=== PATIENT | female | born 1930 | race Hispanic/Latino ===

== ENCOUNTER 2017-04-26 06:59 | Inpatient (IN) | payer MEDICARE, OTHER ==
[~2017-04-26] VITALS: Ht 162.6 cm; Wt 80.8 kg
[~2017-04-26 06:59] MED LIST: AMLODIPINE BESYL5 MG PO; ATENOLOL50 MG PO; LEVOTHYROXINE88 MCG PO; NYSTATIN100000 UNI PO; PREVNAR 13 SYR0.5 ML
[2017-04-26] MEDS ORDERED: ASPIRIN 81 MG CHEW TAB PO ONE (07:30)
[2017-04-26 07:47] LABS: BASOPHILS % 0.4 % (0.0-1.0); EOSINOPHILS % 0.3 % (0.0-6.0); HEMATOCRIT 27.8 % (34.2-44.1); HEMOGLOBIN 8.2 g/dL (12.0-16.0); LYMPHOCYTES # (AUTO) 2.2 (1.0-3.2); LYMPHOCYTES % 28.9 % (18.0-39.1); MEAN CORPUSCULAR HEMOGLOBIN 21.9 pg (28-32); MEAN CORPUSCULAR HGB CONC 29.5 g/dL (31-35); MEAN CORPUSCULAR VOLUME 74.1 fL (81-99); MONOCYTES # (AUTO) 0.9 (0.2-0.8); MONOCYTES % 12.1 % (4.4-11.3); NEUTROPHILS # (AUTO) 4.3 (2.1-6.9); NEUTROPHILS % 57.9 % (38.7-80.0); PLATELET COUNT 244 x10e3/uL (140-360); RED BLOOD COUNT 3.75 x10e6/uL (3.6-5.1); RED CELL DISTRIBUTION WIDTH 18.5 % (11.7-14.4)
[2017-04-26] MEDS ORDERED: SODIUM CHLORIDE 0.9% 1000ML 1,000 ML IV STA (07:55)
[2017-04-26 07:56] LABS: PROTHROMBIN TIME 13.7 seconds (11.9-14.5)
[2017-04-26 07:57] LABS: PARTIAL THROMBOPLASTIN TIME 31.7 seconds (23.8-35.5)
[2017-04-26 08:12] LABS: ALANINE AMINOTRANSFERASE 23 IU/L (0-55); ALBUMIN/GLOBULIN RATIO 0.9 (0.8-2.0); ALKALINE PHOSPHATASE 47 IU/L (40-150); ANION GAP 13.3 mmol/L (8-16); BLOOD UREA NITROGEN 26 mg/dL (7-26); BUN/CREATININE RATIO 23 (6-25); CALCIUM 7.7 mg/dL (8.4-10.2); CARBON DIOXIDE 19 mmol/L (22-29); CHLORIDE 109 mmol/L (98-107); CREATINE KINASE 1120 IU/L (29-168); CREATININE, SERUM 1.12 mg/dL (0.57-1.11); EST GLOMERULAR FILTRATION RATE 46 ML/MIN (60-); GLUCOSE 132 mg/dL (74-118); POTASSIUM 3.3 mmol/L (3.5-5.1); SODIUM 138 mmol/L (136-145)
--- NOTE | 2017-04-26 08:16 | Diagnostic Imaging Report ---
Exam: Head CT without contrast History: Dizziness, weakness Comparison studies: Head CT 07/28/2015. Technique: Axial images were obtained from the skull base to the vertex. Coronal and sagittal images reconstructed from the axial data. Intravenous contrast: None Findings: Scalp: No abnormalities. Bones: No fractures, blastic or lytic lesions. Brain sulci: Mildly prominent. Ventricles: Mild compensatory dilatation. No hydrocephalus. Extra-axial spaces: A 7 mm ossification at the right frontal convexity which may represent benign exostosis or possibly small incidental meningioma without mass effect is unchanged. No other mass or fluid collection. Parenchyma: No mass, acute hemorrhage or acute cortical vascular insults. A few scattered hypodensities in the supratentorial white matter are nonspecific, but most compatible with chronic small vessel ischemic changes. Sellar/suprasellar region: No abnormalities. Craniocervical junction: Patent foramen magnum. No Chiari one malformation. Incidental findings: Atherosclerotic calcifications in the carotid siphons. IMPRESSION: No acute intracranial abnormalities. No changes from the previous head CT 07/28/2015. Chronic findings: 1. Mild generalized volume loss. 2. Mild chronic microvascular ischemic changes. Signed by: Dr. Gaudencio Addison M.D. on 04/26/2017 8:12 AM
[2017-04-26 08:33] LABS: MAGNESIUM 1.9 MG/DL (1.3-2.1)
[2017-04-26 08:46] LABS: BILIRUBIN,URINE NEGATIVE (NEGATIVE); KETONES,URINE NEGATIVE (NEGATIVE); LEUKOCYTE ESTERASE ,URINE 2+ (NEGATIVE); PROTEIN,URINE DIPSTICK NEGATIVE (NEGATIVE); URINE UROBILINOGEN 0.2 mg/dL (0.2 - 1)
[2017-04-26 08:47] LABS: CLARITY,URINE CLOUDY (CLEAR); COLOR,URINE YELLOW (YELLOW); NITRITE,URINE POSITIVE (NEGATIVE)
[2017-04-26 08:59] LABS: THYROID STIMULATING HORMONE 4.924 uIU/mL (0.350-4.940)
[2017-04-26 09:00] LABS: BACTERIA,URINE MANY /HPF; EPITHELIAL CELLS,URINE FEW /LPF; WBC,URINE (MAN) 21-50 /HPF (0-5)
--- NOTE | 2017-04-26 09:13 | Diagnostic Imaging Report ---
EXAMINATION: Chest, CHEST 2 VIEWS INDICATION: Chest pain COMPARISON: Chest 2 views 07/28/2015 FINDINGS: LINES: None. Heart: Normal cardiac silhouette. Vascular: The pulmonary vasculature is within normal limits. Atherosclerotic calcifications of the aortic arch. Mediastinum: No mediastinal, hilar, or axillary mass or lymphadenopathy. Lungs: No parenchymal mass. No focal consolidation. Bibasilar atelectasis. Pleura: No pleural effusion. No pneumothorax. Bones: No acute osseous abnormality. Degenerative changes of the thoracic spine. Soft tissues: Normal. Impression: No acute radiographic abnormality. Signed by: Dr. Manuel Bernal M.D. on 04/26/2017 9:10 AM
--- NOTE | 2017-04-26 10:04 | Diagnostic Imaging Report ---
EXAM: CT Chest WITH contrast INDICATION: Chest pain COMPARISON: None available TECHNIQUE: Chest was scanned utilizing a multidetector helical scanner from the lung apex through the level of the diaphragm after administration of IV contrast. Coronal and sagittal reconstructions were submitted for interpretation. Protocol: Pulmonary embolus protocol IV CONTRAST: 100 mL of Isovue 370 COMPLICATIONS: None RADIATION DOSE: Total exam DLP: 498.9 mGy*cm. CTDIvol has been reviewed. It is below the limits set by the Radiation Protocol Committee (RPC). FINDINGS: LINES/ TUBES: None. Heart: No cardiomegaly. No pericardial effusion. Vessels: No intraluminal filling defect within the pulmonary arteries to the segmental level. Atherosclerotic calcifications of the thoracic aorta and coronary arteries. Mediastinum: No mediastinal or hilar mass or lymphadenopathy. Normal thyroid. Lungs: No parenchymal mass. Airspace opacities are present in the right lower lobe, series 3 image 75, and the left upper lobe, series 3 image 58. Normal parenchyma. Pleura: No pleural effusion. No pneumothorax. Soft tissues: Normal. No axillary mass or lymphadenopathy. Bones: No acute osseous abnormality. Degenerative changes of the thoracic spine. Adrenal glands: No adrenal nodules. Abdomen: The partially visualized portions of the upper abdomen are unremarkable. Cholelithiasis. IMPRESSION: 1. No evidence of pulmonary arterial embolism or thrombosis to the segmental level. 2. Airspace opacities in the right lower lobe and left upper lobe may represent a developing pneumonia. Signed by: Dr. Manuel Bernal M.D. on 04/26/2017 10:00 AM
[2017-04-26] MEDS ORDERED: SODIUM CHLORIDE 0.9% 500ML 500 ML ONE (10:59)
[2017-04-26] MEDS ORDERED: POTASSIUM CHLORIDE 20 MEQ TAB CR PO STA (11:13)
[2017-04-26] MEDS ORDERED: DILTIAZEM HCL VIAL 5 ML ONE (11:37)
[2017-04-26] MEDS ORDERED: DIGOXIN INJ 0.25 MG/ML 2 ML AMP ONE (11:55)
[2017-04-26] MEDS: SODIUM CHLORIDE 0.9% 1000ML 1,000 ML IV SCH ×2 (11:56→22:04)
[2017-04-26] MEDS ORDERED: AMIODARONE 900MG 500 ML IV ONE (11:58)
[2017-04-26] MEDS ORDERED: DILTIAZEM HCL 5 MG/ML 5 ML VIAL IV ONE (12:15)
[2017-04-26] MEDS ORDERED: AMIODARONE HCL 150 MG/100 ML BAG IV ONE (12:30)
[2017-04-26] MEDS ORDERED: AMIODARONE HCL 100 ML IV ONE (13:00)
[2017-04-26] MEDS ORDERED: AMIODARONE 900MG 500 ML IV SCH (13:00)
[2017-04-26] MEDS ORDERED: DIGOXIN INJ 0.25 MG/ML 2 ML AMP IV ONE (13:00)
[2017-04-26] MEDS: CEFTRIAXONE SOD 1 GM VIAL IV SCH (13:06)
[2017-04-26] MEDS: ALBUTEROL/IPRATROPIUM 3 ML NEB NEB SCH ×2 (15:00→19:24)
[2017-04-26] MEDS ORDERED: OSELTAMIVIR PHOSPHATE 75 MG CAP PO SCH (17:00)
[2017-04-26] MEDS ORDERED: SODIUM CHLORIDE 0.9% 50ML 50 ML ONE (18:25)
[2017-04-26] MEDS ORDERED: IOPAMIDOL 370 MG/ML 200 ML INFUS..BTL INJ ONE (18:26)
[2017-04-26] MEDS ORDERED: IOPAMIDOL 300MG/ML 100 ML INFUS..BTL IV ONE (18:26)
[2017-04-26] MEDS: TAMIFLU 30 MG PO SCH (19:10)
[2017-04-27] MEDS: SODIUM CHLORIDE 0.9% 1000ML 1,000 ML IV SCH (02:17)
[2017-04-27] MEDS: ALBUTEROL/IPRATROPIUM 3 ML NEB NEB SCH ×3 (07:00→23:35)
[2017-04-27 07:36] LABS: BASOPHILS % 0.3 % (0.0-1.0); EOSINOPHILS % 0.5 % (0.0-6.0); HEMATOCRIT 24.8 % (34.2-44.1); LYMPHOCYTES # (AUTO) 1.7 (1.0-3.2); MEAN CORPUSCULAR HEMOGLOBIN 22.2 pg (28-32); MEAN CORPUSCULAR HGB CONC 29.8 g/dL (31-35); MEAN CORPUSCULAR VOLUME 74.3 fL (81-99); MONOCYTES # (AUTO) 0.6 (0.2-0.8); MONOCYTES % 9.5 % (4.4-11.3); NEUTROPHILS # (AUTO) 4.1 (2.1-6.9); NEUTROPHILS % 63.2 % (38.7-80.0); PLATELET COUNT 197 x10e3/uL (140-360); RED BLOOD COUNT 3.34 x10e6/uL (3.6-5.1); RED CELL DISTRIBUTION WIDTH 18.6 % (11.7-14.4)
[2017-04-27 07:45] LABS: HEMOGLOBIN 7.4 g/dL (12.0-16.0)
[2017-04-27 08:03] LABS: % IRON SATURATION 12 % (15-50); ANION GAP 9.4 mmol/L (8-16); BLOOD UREA NITROGEN 15 mg/dL (7-26); BUN/CREATININE RATIO 19 (6-25); CALCIUM 7.4 mg/dL (8.4-10.2); CARBON DIOXIDE 19 mmol/L (22-29); CHLORIDE 114 mmol/L (98-107); CREATININE, SERUM 0.77 mg/dL (0.57-1.11); EST GLOMERULAR FILTRATION RATE > 60 ML/MIN (60-); GLUCOSE 110 mg/dL (74-118); IRON 42 ug/dL (50-170); POTASSIUM 4.4 mmol/L (3.5-5.1); SODIUM 138 mmol/L (136-145); TOTAL IRON BINDING CAPACITY 353 ug/dL (261-478); TRANSFERRIN 252 mg/dL (180-382)
[2017-04-27] MEDS: TAMIFLU 30 MG PO SCH ×2 (08:53→17:00)
[2017-04-27] MEDS: IRON SUCROSE 100 MG in SODIUM CHLORIDE 0.9% 100 ML 100 ML IV SCH (10:35)
[2017-04-27 11:15] VITALS: BP 195/79
[2017-04-27] MEDS ORDERED: ASPIRIN 81 MG ENTERIC COATED PO ONE (12:30)
[2017-04-27] MEDS ORDERED: METOPROLOL TARTRATE 25 MG TAB PO ONE (12:30)
[2017-04-27] MEDS: CEFTRIAXONE SOD 1 GM VIAL IV SCH (12:35)
[2017-04-27 13:00] VITALS: BP 195/79
--- NOTE | 2017-04-27 14:01 | Consultation ---
DATE OF CONSULTATION: April 27, 2017 CARDIOLOGY CONSULTATION REASON FOR CONSULTATION: Atrial fibrillation. HISTORY OF PRESENT ILLNESS: Ms. Johnson is an 86-year-old female who was admitted with influenza as well as urinary tract infection. She was found to be in rapid atrial fibrillation. She denies any past medical problems. She was given intravenous amiodarone with conversion to sinus rhythm. PAST MEDICAL HISTORY: As listed above. SOCIAL HISTORY: Patient does not smoke or drink. No family is present. ALLERGIES: NO KNOWN DRUG ALLERGIES. HOME MEDICATIONS: Include levothyroxine 88 mcg a day. REVIEW OF SYSTEMS: Negative except as dictated in the history of present illness. PHYSICAL EXAMINATION VITAL SIGNS: Afebrile, heart rate 69, blood pressure 162/62, and O2 sat 100%. CARDIOVASCULAR: Regular rhythm. S4 gallop. Systolic murmur. LUNGS: Crackles in the right lower lobe. ABDOMEN: Soft. Bowel sounds heard adequately. LABORATORY AND IMAGING DATA: Telemetry shows sinus rhythm. Chest CT shows consolidation in the right lower lobe. Labs were reviewed. Creatinine is 0.77, INR is 1. Hemoglobin is 7.4 with iron deficiency anemia indices. ASSESSMENT: Paroxysmal atrial fibrillation in the setting of influenza pneumonia. RECOMMENDATIONS: Beta-ramy amiodarone for rate and rhythm control. At this point, the patient is anemic with a hemoglobin of 7.4. I will give her an aspirin only for anticoagulation, restart her levothyroxine, check thyroid function (this was normal). Echocardiogram has been ordered, I will review the same. Maintain on telemetry for now. Job#: [id number] LATOYA
[2017-04-27 16:00] VITALS: BP 157/67
[2017-04-27] MEDS ORDERED: ACETAMINOPHEN 325 MG TAB PO PRN (16:45)
[2017-04-27] MEDS: ACETAMINOPHEN 325 MG TAB PO PRN (17:20)
[2017-04-27] MEDS: METOPROLOL TARTRATE 25 MG TAB PO SCH (17:20)
[2017-04-27] MEDS: AMIODARONE HCL 200 MG TAB PO SCH (17:20)
[2017-04-27 20:00] VITALS: BP 122/60
[2017-04-28] VITALS (7 sets, daily range): BP systolic 138–148; BP diastolic 63–74
[2017-04-28 07:10] LABS: BASOPHILS % 0.5 % (0.0-1.0); EOSINOPHILS # (AUTO) 0.1 (0.0-0.4); EOSINOPHILS % 1.5 % (0.0-6.0); HEMATOCRIT 23.8 % (34.2-44.1); LYMPHOCYTES # (AUTO) 1.5 (1.0-3.2); LYMPHOCYTES % 25.7 % (18.0-39.1); MEAN CORPUSCULAR HEMOGLOBIN 21.9 pg (28-32); MEAN CORPUSCULAR HGB CONC 29.4 g/dL (31-35); MEAN CORPUSCULAR VOLUME 74.4 fL (81-99); MONOCYTES # (AUTO) 0.8 (0.2-0.8); MONOCYTES % 12.7 % (4.4-11.3); NEUTROPHILS # (AUTO) 3.6 (2.1-6.9); NEUTROPHILS % 59.3 % (38.7-80.0); PLATELET COUNT 211 x10e3/uL (140-360); RED CELL DISTRIBUTION WIDTH 18.4 % (11.7-14.4)
[2017-04-28 07:34] LABS: ANION GAP 11.7 mmol/L (8-16); BLOOD UREA NITROGEN 13 mg/dL (7-26); BUN/CREATININE RATIO 17 (6-25); CALCIUM 7.8 mg/dL (8.4-10.2); CARBON DIOXIDE 20 mmol/L (22-29); CHLORIDE 115 mmol/L (98-107); CREATININE, SERUM 0.76 mg/dL (0.57-1.11); EST GLOMERULAR FILTRATION RATE > 60 ML/MIN (60-); GLUCOSE 99 mg/dL (74-118); POTASSIUM 3.7 mmol/L (3.5-5.1); SODIUM 143 mmol/L (136-145)
[2017-04-28] MEDS: ALBUTEROL/IPRATROPIUM 3 ML NEB NEB SCH ×3 (07:50→23:20)
[2017-04-28] MEDS: TAMIFLU 30 MG PO SCH ×2 (09:22→17:13)
[2017-04-28] MEDS: ASPIRIN 81 MG ENTERIC COATED PO SCH (09:22)
[2017-04-28] MEDS: AMIODARONE HCL 200 MG TAB PO SCH ×2 (09:22→17:13)
[2017-04-28] MEDS: METOPROLOL TARTRATE 25 MG TAB PO SCH ×2 (09:22→17:13)
--- NOTE | 2017-04-28 09:37 | Progress Note ---
DATE: April 28, 2017 CARDIOLOGY PROGRESS NOTE SUBJECTIVE: Ms. Johnson has no symptoms. She denies chest pain or shortness of breath. PHYSICAL EXAMINATION VITALS: Afebrile, heart rate 65, blood pressure 140/63, and O2 sat is 100%. CARDIOVASCULAR: Regular rhythm. S4 gallop. LUNGS: Clear to auscultation bilaterally. Hemoglobin is 7. Creatinine is normal. Telemetry shows sinus rhythm/sinus bradycardia. ASSESSMENT: Paroxysmal atrial fibrillation with severe anemia. RECOMMENDATIONS: Current medications amiodarone and beta ramy appropriate. Patient remains in sinus rhythm. Aspirin only for anticoagulation given anemia with iron deficiency pattern. Job#: [id number] RI
[2017-04-28] MEDS: CEFTRIAXONE SOD 1 GM VIAL IV SCH (11:40)
[2017-04-28] MEDS: IRON SUCROSE 100 MG in SODIUM CHLORIDE 0.9% 100 ML 100 ML IV SCH (13:07)
[2017-04-28] MEDS ORDERED: FUROSEMIDE INJ 10 MG/ML 2 ML VIAL IV SCH (13:30)
[2017-04-28] MEDS ORDERED: SODIUM CHLORIDE 0.9% 250ML 250 ML IV ONE (13:30)
[2017-04-28] MEDS ORDERED: HYDRALAZINE HCL 20 MG/ML VIAL IV STA (20:25)
[2017-04-28] MEDS ORDERED: LISINOPRIL 10 MG TAB PO NR (21:00)
[2017-04-29] VITALS (8 sets, daily range): BP systolic 137–172; BP diastolic 58–75
[2017-04-29] MEDS: ACETAMINOPHEN 325 MG TAB PO PRN (02:53)
[2017-04-29] MEDS: ALBUTEROL/IPRATROPIUM 3 ML NEB NEB SCH (07:30)
[2017-04-29] MEDS: AMIODARONE HCL 200 MG TAB PO SCH ×2 (09:01→16:23)
[2017-04-29] MEDS: ASPIRIN 81 MG ENTERIC COATED PO SCH (09:01)
[2017-04-29] MEDS: TAMIFLU 30 MG PO SCH ×2 (09:01→16:23)
[2017-04-29] MEDS: METOPROLOL TARTRATE 25 MG TAB PO SCH ×2 (09:02→16:23)
[2017-04-29] MEDS: IRON SUCROSE 100 MG in SODIUM CHLORIDE 0.9% 100 ML 100 ML IV SCH (10:47)
[2017-04-29] MEDS: CEFTRIAXONE SOD 1 GM VIAL IV SCH (12:02)
[2017-04-29] MEDS ORDERED: ALBUTEROL/IPRATROPIUM 3 ML NEB NEB PRN (14:00)
[2017-04-29] MEDS: LISINOPRIL 10 MG TAB PO SCH (16:23)
--- NOTE | 2017-04-29 19:28 | Progress Note ---
DATE: April 29, 2017 CARDIOLOGY PROGRESS NOTE SUBJECTIVE: The patient denies chest pain or shortness of breath. OBJECTIVE VITAL SIGNS: Temperature 96.1 degrees, pulse 68, respiratory rate 20, blood pressure 147/58, oxygen saturation 95% on room air. GENERAL: Awake, alert and in no acute distress. LUNGS: Clear to auscultation bilaterally. No wheezes or crackles. CARDIOVASCULAR: Normal rate, regular rhythm. No murmurs. Normal S1 and S2. ABDOMEN: Soft and nontender. EXTREMITIES: No edema. CARDIAC MEDICATIONS: 1. Lisinopril 10 mg p.o. b.i.d. 2. Metoprolol tartrate 25 mg p.o. b.i.d. 3. Amiodarone 200 mg p.o. b.i.d. 4. Aspirin 81 mg p.o. daily. LABORATORY DATA: Hemoglobin 8. IMPRESSION 1. Influenza A. 2. Atrial fibrillation in the setting of above. 3. Anemia. 4. Urinary tract infection. RECOMMENDATIONS: The patient is now in sinus rhythm. Continue amiodarone and beta blockade. The patient is not currently anticoagulated for her atrial fibrillation despite her CHADS score of 3 due to anemia requiring blood transfusion. Will check a stool occult blood. Please monitor the patient on telemetry. Thank you for this consult. We will continue to follow. Job#: [id number]
[2017-04-30] VITALS (7 sets, daily range): BP systolic 129–175; BP diastolic 58–75
[2017-04-30] MEDS: LISINOPRIL 10 MG TAB PO SCH (09:00)
[2017-04-30] MEDS: ASPIRIN 81 MG ENTERIC COATED PO SCH (09:00)
[2017-04-30] MEDS: METOPROLOL TARTRATE 25 MG TAB PO SCH (09:00)
[2017-04-30] MEDS: TAMIFLU 30 MG PO SCH (09:00)
[2017-04-30] MEDS: AMIODARONE HCL 200 MG TAB PO SCH (09:00)
[2017-04-30] MEDS ORDERED: BENZONATATE 100 MG CAP PO PRN (13:45)
--- NOTE | 2017-04-30 14:20 | Discharge Summary ---
PRIMARY CARE DOCTOR: Dr. Faye French FINAL DIAGNOSIS: Influenza pneumonia. SECONDARY DIAGNOSES 1. Symptomatic iron deficiency anemia, status post 1 unit of blood transfusion. 2. Atrial fibrillation with rapid ventricular response, resolved, currently in sinus. 3. Uncontrolled hypertension, resolved. 4. Hypothyroidism. 5. Asymptomatic Klebsiella urinary tract infection. 6. Mild rhabdomyolysis, resolved. 7. Dehydration, resolved. 8. Metabolic acidosis, resolved. HISTORY: Per H and P. PROCEDURES AND STUDIES PERFORMED 1. Chest computerized tomography. 2. Head computerized tomography. HOSPITAL COURSE: Patient was admitted. Her influenza screen came back positive. Chest CT shows pneumonia. Tamiflu was started. Her head CT was benign. Nebulizer treatments were started as well. She improved with hydration. Her CPK came down nicely. Her metabolic acidosis and dehydration got better. However, her hemoglobin went as low as 7. Patient was symptomatic. Therefore, the decision was to give her a unit of blood. At the time of discharge, her hemoglobin was 8. Currently, she is feeling much better. She has no more wheezing. Patient also received intravenous iron. As far as her symptomatic UTI, she was treated with IV Rocephin. Her TSH is normal. Will continue her levothyroxine at her home dosage of 88 mcg daily. Due to her debility, the patient will be discharged to [facility] facility per family's wish for skilled physical therapy. It took 32 minutes total to discharge this patient today. CONDITION ON DISCHARGE: Stable. DISCHARGE MEDICATIONS: Please see medication reconciliation form. SONIYA SCOTT M.D. Job#: [id number] RI cc:FAYE FRENCH MD
--- NOTE | 2017-04-30 15:31 | Progress Note ---
DATE: April 30, 2017 CARDIOLOGY PROGRESS NOTE SUBJECTIVE: The patient denies chest pain or shortness of breath. She is being discharged to SNF. OBJECTIVE VITAL SIGNS: Temperature 98.5 degrees, pulse 58, respiratory rate 18, blood pressure 129/58, oxygen saturation 94% on 2 liters nasal cannula. GENERAL: Awake, alert and in no acute distress. LUNGS: Clear to auscultation bilaterally. No wheezes or crackles. CARDIOVASCULAR: Normal rate, regular rhythm. No murmurs. Normal S1 and S2. ABDOMEN: Soft and nontender. EXTREMITIES: No edema. CARDIAC MEDICATIONS: 1. Lisinopril 10 mg p.o. b.i.d. 2. Metoprolol tartrate 25 mg p.o. b.i.d. 3. Amiodarone 200 mg p.o. b.i.d. 4. Aspirin 81 mg p.o. daily. LABORATORY DATA: Stool occult blood positive. IMPRESSION 1. Influenza A. 2. Atrial fibrillation in the setting of above. 3. Anemia with positive stool occult blood. 4. Urinary tract infection. RECOMMENDATIONS: The patient is in sinus rhythm. Continue beta blockade. Decrease amiodarone to 200 mg p.o. daily. The patient's CHADSVASC score is 3; however, which warrants anticoagulation. However, she is not anticoagulated due to anemia requiring blood transfusion and positive stool occult blood. Recommend GI evaluation. We can further discuss anticoagulation as an outpatient. Please have the patient follow up with us in the office in 2 weeks. Thank you for this consult. We will continue to follow. Job#: [id number]
[2017-05-01] MEDS ORDERED: LEVOTHYROXINE SODIUM 88 MCG TAB PO SCH (06:00)
[2017-05-01] MEDS ORDERED: AMIODARONE HCL 200 MG TAB PO SCH (09:00)
== END 2017-04-30 17:45 | DRG 194 ==
LOC: ER 06:59 → ERHOLD 10:17 → MED/SURG3 10:34 → EDBEDREQSVC 04-27 07:29 → MED/SURG3 04-27 10:54
PROVIDERS: ADMIT Internal Medicine; ATTEND Internal Medicine
PROC: 30233N1 Transfusion of Nonautologous Red Blood Cells into Peripheral Vein, Percutaneous Approach (ICD-10-PCS; principal; 2017-04-28)
DX: J11.00 Influenza due to unidentified influenza virus with unspecified type of pneumonia (principal); N39.0 Urinary tract infection, site not specified; E87.2 Acidosis; M62.82 Rhabdomyolysis; K92.2 Gastrointestinal hemorrhage, unspecified; I48.0 Paroxysmal atrial fibrillation; B96.1 Klebsiella pneumoniae [K. pneumoniae] as the cause of diseases classified elsewhere; E86.0 Dehydration; E03.9 Hypothyroidism, unspecified; E87.6 Hypokalemia; J18.9 Pneumonia, unspecified organism; D50.0 Iron deficiency anemia secondary to blood loss (chronic); Z79.52 Long term (current) use of systemic steroids
CPT/HCPCS: 36415; 36430; 70450; 71020; 71260; 80048; 80053; 81001; 82270; 82550; 82553; 82607; 83540; 83605; 83735; 84443; 84466; 84484; 85014; 85025; 85379; 85610; 85730; 86850; 86900; 86920; 87040; 87086; 87186; 87400; 93005; 93306; 94640; 99285; J0360; J0696; J1160; J1756; J1940; J7030; J7040; P9016; Q9967

== ENCOUNTER 2017-09-19 11:15 | Emergency (ER) | payer MEDICARE, OTHER ==
[~2017-09-19] VITALS: Ht 162.6 cm; Wt 88.0 kg
[2017-09-19] MEDS ORDERED: NIFEDIPINE 10 MG CAP PO STA (12:20)
[2017-09-19 12:34] LABS: BASOPHILS % 0.4 % (0.0-1.0); EOSINOPHILS # (AUTO) 0.1 (0.0-0.4); EOSINOPHILS % 0.8 % (0.0-6.0); HEMOGLOBIN 11.9 g/dL (12.0-16.0); LYMPHOCYTES # (AUTO) 1.4 (1.0-3.2); LYMPHOCYTES % 14.9 % (18.0-39.1); MEAN CORPUSCULAR HEMOGLOBIN 29.3 pg (28-32); MEAN CORPUSCULAR HGB CONC 33.1 g/dL (31-35); MEAN CORPUSCULAR VOLUME 88.7 fL (81-99); MONOCYTES # (AUTO) 0.6 (0.2-0.8); MONOCYTES % 6.4 % (4.4-11.3); NEUTROPHILS # (AUTO) 7.2 (2.1-6.9); NEUTROPHILS % 77.2 % (38.7-80.0); PLATELET COUNT 328 x10e3/uL (140-360); RED BLOOD COUNT 4.06 x10e6/uL (3.6-5.1); RED CELL DISTRIBUTION WIDTH 14.6 % (11.7-14.4)
[2017-09-19 12:45] LABS: BLOOD UREA NITROGEN 24 mg/dL (7-26); BUN/CREATININE RATIO 28 (6-25); CARBON DIOXIDE 23 mmol/L (22-29); CHLORIDE 107 mmol/L (98-107); CREATINE KINASE 100 IU/L (29-168); CREATININE, SERUM 0.87 mg/dL (0.57-1.11); EST GLOMERULAR FILTRATION RATE > 60 ML/MIN (60-); GLUCOSE 115 mg/dL (74-118); SODIUM 139 mmol/L (136-145)
[2017-09-19 13:12] VITALS: BP 116/56
== END 2017-09-19 13:55 | disposition home or self-care (01) ==
LOC: ER 11:15
DX: I10 Essential (primary) hypertension (principal); E03.9 Hypothyroidism, unspecified
CPT/HCPCS: 36415; 80048; 82550; 82553; 84484; 85025; 93005; 99284

== ENCOUNTER 2017-11-01 00:30 | Emergency (ER) | payer MEDICARE, OTHER ==
[~2017-11-01] VITALS: Ht 162.6 cm; Wt 80.7 kg
[2017-11-01 02:12] LABS: FREE T4 (FREE THYROXINE) 0.97 ng/dL (0.9-1.8); THYROID STIMULATING HORMONE 4.823 uIU/mL (0.350-4.940)
[2017-11-01 02:24] VITALS: BP 139/88
== END 2017-11-01 02:26 | disposition home or self-care (01) ==
LOC: FSED 00:30
DX: L74.0 Miliaria rubra (principal); T67.2XXA Heat cramp, initial encounter
CPT/HCPCS: 36415; 80053; 81003; 84439; 84443; 85025; 99283

== ENCOUNTER 2017-11-29 12:32 | Emergency (ER) | payer MEDICARE, OTHER ==
[~2017-11-29] VITALS: Ht 162.6 cm; Wt 80.7 kg
[2017-11-29 14:10] LABS: BASOPHILS % 0.3 % (0.0-1.0); EOSINOPHILS # (AUTO) 0.1 (0.0-0.4); EOSINOPHILS % 0.8 % (0.0-6.0); HEMATOCRIT 33.5 % (34.2-44.1); HEMOGLOBIN 10.8 g/dL (12.0-16.0); LYMPHOCYTES # (AUTO) 1.9 (1.0-3.2); LYMPHOCYTES % 18.3 % (18.0-39.1); MEAN CORPUSCULAR HEMOGLOBIN 26.5 pg (28-32); MEAN CORPUSCULAR HGB CONC 32.2 g/dL (31-35); MEAN CORPUSCULAR VOLUME 82.3 fL (81-99); MONOCYTES # (AUTO) 0.7 (0.2-0.8); MONOCYTES % 6.7 % (4.4-11.3); NEUTROPHILS # (AUTO) 7.8 (2.1-6.9); NEUTROPHILS % 73.5 % (38.7-80.0); PLATELET COUNT 423 x10e3/uL (140-360); RED BLOOD COUNT 4.07 x10e6/uL (3.6-5.1)
--- NOTE | 2017-11-29 14:14 | Diagnostic Imaging Report ---
EXAMINATION: CHEST SINGLE (PORTABLE) 11/29/2017 1:22 PM COMPARISON: CT chest from 04/26/2017 INDICATION: Stomach problems DISCUSSION: LINES: None. LUNGS: Biapical pleural/parenchymal scarring. No pneumonia or pulmonary edema. PLEURA: No pleural effusion or pneumothorax. HEART AND MEDIASTINUM: The cardiomediastinal silhouette is unremarkable. BONES AND SOFT TISSUES: No acute osseous lesion. Multilevel degenerative changes of the thoracic spine. IMPRESSION: No evidence of pneumonia or pulmonary edema. Didier Owens MD Signed by: Dr. Didier Owens M.D. on 11/29/2017 2:11 PM
[2017-11-29 14:17] LABS: INR 1.17
[2017-11-29 14:18] LABS: PARTIAL THROMBOPLASTIN TIME 34.1 seconds (23.8-35.5)
[2017-11-29 14:30] LABS: ALBUMIN 3.5 g/dL (3.5-5.0); ALBUMIN/GLOBULIN RATIO 0.9 (0.8-2.0); CALCIUM 9.1 mg/dL (8.4-10.2); CREATININE, SERUM 0.95 mg/dL (0.57-1.11)
[2017-11-29 14:36] LABS: CREATINE KINASE MB 2.1 ng/mL (0-5.0)
--- NOTE | 2017-11-29 15:16 | Diagnostic Imaging Report ---
EXAM: Complete Abdominal Ultrasound INDICATION: Abdominal ultrasound COMPARISON: None. TECHNIQUE: Transverse and longitudinal images of the upper abdomen were obtained. FINDINGS: Liver: Size: 15.4 cm in the right midclavicular line, normal Appearance: Increased echogenicity, smooth contour Mass: No focal masses Spleen: Size: 9.5 cm in length, normal Echogenicity: Normal Mass: No focal masses Gallbladder: Stones/Sludge: There is a 1.7 cm gallstone Wall: 0.4 cm Appearance: No pericholecystic fluid or hydrops. Sonographic Graff's Sign: Negative Bile Ducts: Intrahepatic Ducts: No dilatation Extrahepatic Ducts: Common bile duct measures 0.3 cm, no dilatation Pancreas: Visualized portions of the pancreatic neck are normal. Kidneys: Length: Right 8.5 cm Left 9.5 cm Echogenicity: Increased Collecting System: No hydronephrosis Stone: None Cyst/Mass: None Vessels: Aorta: Visualized portions are normal Inferior Vena Cava: Visualized portions are normal Main Portal Vein: 0.9 cm, normal size with hepatopedal flow. Free Fluid: No ascites or pleural effusion IMPRESSION: 1. Cholelithiasis. There is borderline thickening of the gallbladder wall, but no other signs of acute cholecystitis. Correlate clinically. 2. Diffuse hepatic steatosis. 3. Mildly increased renal echogenicity, suggesting medical renal disease. Signed by: Dr. Didier Owens M.D. on 11/29/2017 3:12 PM
[2017-11-29 17:53] LABS: CLARITY,URINE CLEAR (CLEAR); COLOR,URINE YELLOW (YELLOW)
[2017-11-29 17:54] LABS: BILIRUBIN,URINE NEGATIVE (NEGATIVE); KETONES,URINE NEGATIVE (NEGATIVE); LEUKOCYTE ESTERASE ,URINE NEGATIVE (NEGATIVE); NITRITE,URINE NEGATIVE (NEGATIVE); PROTEIN,URINE DIPSTICK NEGATIVE (NEGATIVE); URINE UROBILINOGEN 0.2 mg/dL (0.2 - 1)
[2017-11-29 17:56] LABS: BACTERIA,URINE RARE /HPF; EPITHELIAL CELLS,URINE RARE /LPF; RBC,URINE 0-5 /HPF (0-5); WBC,URINE (MAN) 0-5 /HPF (0-5)
[2017-11-29 18:08] VITALS: BP 159/67
== END 2017-11-29 18:22 | disposition home or self-care (01) ==
LOC: ER 12:32
DX: R10.13 Epigastric pain (principal); R11.0 Nausea; K80.20 Calculus of gallbladder without cholecystitis without obstruction; I10 Essential (primary) hypertension; K21.9 Gastro-esophageal reflux disease without esophagitis; E07.9 Disorder of thyroid, unspecified
CPT/HCPCS: 36415; 71045; 76700; 80053; 81001; 82150; 82550; 82553; 83690; 83880; 84484; 85025; 85610; 85730; 93005; 99284

== ENCOUNTER 2018-05-12 19:58 | Observation (INO) | payer MEDICARE, OTHER ==
[~2018-05-12] VITALS: Ht 167.6 cm; Wt 72.2 kg
--- OUTSIDE RECORDS SUMMARY | 2018-05-12 20:01 | XMS REPORT ---
Author Author [facility] Address Unknown Phone Unavailable Care Team Providers Care Marine Mammal Trainer Name Role Phone Anali MADERA Unavailable Unavailable Helio BOWER Unavailable Unavailable Payers Payer Name Policy Type Policy Number Effective Date Expiration Date Problems This patient has no known problems. Allergies, Adverse Reactions, Alerts Allergy Name Allergy Type Status Severity Reaction(s) Onset Date Inactive Date Treating Clinician Comments No Known Drug Intolerances DA Active U 2010-03-29 00:00:00 Medications This patient has no known medications. Results Test Description Test Time Test Comments Text Results Atomic Results Result Comments US ABDOMEN COMPLETE 2017-11-29 15:10:00 [place] [address] Patient Name: TOLU HAYNES MR #: [id number] : 1930 Age/Sex: 87/F Req #: [id number] Adm Physician: Ordered by: JULIET ALTAMIRANO SECURITY DELIVERY SPECIALIST Report #: [id number] Location: ER Room/Bed: Procedure: [id number] US/US ABDOMEN COMPLETE Exam Date: 11/29/17 Exam Time: 1355 REPORT STATUS: Signed EXAM: Complete Abdominal Ultrasound INDICATION: Abdominal ultrasound COMPARISON: None. TECHNIQUE: Transverse and longitudinal images of the upper abdomen were obtained. FINDINGS: Liver: Size: 15.4 cm in the right midclavicular line, normal Appearance: Increased echogenicity, smooth contour Mass: No focal masses Spleen: Size: 9.5 cm in length, normal Echogenicity: Normal Mass: No focal masses Gallbladder: Stones/Sludge: There is a 1.7 cm gallstone Wall: 0.4 cm Appearance: No pericholecystic fluid or hydrops. Sonographic Graff's Sign: Negative Bile Ducts: Intrahepatic Ducts: No dilatation Extrahepatic Ducts: Common bile duct measures 0.3 cm, no dilatation Pancreas: Visualized portions of the pancreatic neck are normal. Kidneys: Length: Right 8.5 cm Left 9.5 cm Echogenicity: Increased Collecting System: No hydronephrosis Stone: None Cyst/Mass: None Vessels: Aorta: Visualized portions are normal Inferior Vena Cava: Visualized portions are normal Main Portal Vein: 0.9 cm, normal size with hepatopedal flow. Free Fluid: No ascites or pleural effusion IMPRESSION: 1. Cholelithiasis. There is borderline thickening of the gallbladder wall, but no other signs of acute cholecystitis. Correlate clinically. 2. Diffuse hepatic steatosis. 3. Mildly increased renal echogenicity, suggesting medical renal disease. Signed by: Dr. Phan Owens M.D. on 11/29/2017 3:12 PM Dictated By: PHAN OWENS MD 1512 Transcribed By: LEO on 11/29/17 1512 COPY TO: JULIET ALTAMIRANO NP CHEST SINGLE (PORTABLE) 2017-11-29 14:09:00 [place] [address] Patient Name: TOLU HAYNES MR #: [id number] : 1930 Age/Sex: 87/F Req #: [id number] Adm Physician: Ordered by: JULIET ALTAMIRANO NP Report #: [id number] Location: ER Room/Bed: Procedure: [id number] DX/CHEST SINGLE (PORTABLE) Exam Date: 11/29/17 Exam Time: 1342 REPORT STATUS: Signed EXAMINATION: CHEST SINGLE (PORTABLE) 11/29/2017 1:22 PM COMPARISON: CT chest from 04/26/2017 INDICATION: Stomach problems DISCUSSION: LINES: None. LUNGS: Biapical pleural/parenchymal scarring. No pneumonia or pulmonary edema. PLEURA: No pleural effusion or pneumothorax. HEART AND MEDIASTINUM: The cardiomediastinal silhouette is unremarkable. BONES AND SOFT TISSUES: No acute osseous lesion. Multilevel degenerative changes of the thoracic spine. IMPRESSION: No evidence of pneumonia or pulmonary edema. Phan Owens MD Signed by: Dr. Phan Owens MChau on 11/29/2017 2:11 PM Dictated By: PHAN OWENS MD 1411 Transcribed By: LEO on 11/29/17 1411 COPY TO: JULIET ALTAMIRANO SECURITY DELIVERY SPECIALIST CT CHEST W [place] [address] Patient Name: TOLU HAYNES MR #: [id number] : 1930 Age/Sex: 86/F Req #: [id number] Adm Physician: Ordered by: DINA BOWER MD Report #: [id number] Location: Room/Bed: Procedure: [id number] CT/CT CHEST W Exam Date: Exam Time: REPORT STATUS: Signed EXAM: CT Chest WITH contrast INDICATION: Chest pain COMPARISON: None available TECHNIQUE: Chest was scanned utilizing a multidetector helical scanner from the lung apex through the level of the diaphragm after administration of IV contrast. Coronal and sagittal reconstructions were submitted for interpretation. Protocol: Pulmonary embolus protocol IV CONTRAST: 100 mL of Isovue 370 COMPLICATIONS: None RADIATION DOSE: Total exam DLP: 498.9 mGy*cm. CTDIvol has been reviewed. It is below the limits set by the Radiation Protocol Committee (RPC). FINDINGS: LINES/ TUBES: None. Heart: No cardiomegaly. No pericardial effusion. Vessels: No intraluminal filling defect within the pulmonary arteries to the segmental level. Atherosclerotic calcifications of the thoracic aorta and coronary arteries. Mediastinum: No mediastinal or hilar mass or lymphadenopathy. Normal thyroid. Lungs: No parenchymal mass. Airspace opacities are present in the right lower lobe, series 3 image 75, and the left upper lobe, series 3 image 58. Normal parenchyma. Pleura: No pleural effusion. No pneumothorax. Soft tissues: Normal. No axillary mass or lymphadenopathy. Bones: No acute osseous abnormality. Degenerative changes of the thoracic spine. Adrenal glands: No adrenal nodules. Abdomen: The partially visualized portions of the upper abdomen are unremarkable. Cholelithiasis. IMPRESSION: 1. No evidence of pulmonary arterial embolism or thrombosis to the segmental level. 2. Airspace opacities in the right lower lobe and left upper lobe may represent a developing pneumonia. Signed by: Dr. Patrick Kennedy M.D. on 04/26/2017 10:00 AM Dictated By: PATRICK KNENEDY MD 1000 Transcribed By: ARIAS LOPEZ on 04/26/17 1000 COPY TO: DINA BOWER MD CT BRAIN WO [place] [address] Patient Name: TOLU HAYNES MR #: [id number] : 1930 Age/Sex: 86/F Req #: [id number] Adm Physician: Ordered by: TERESA SALGADO MD Report #: [id number] Location: Room/Bed: Procedure: [id number] CT/CT BRAIN WO Exam Date: Exam Time: REPORT STATUS: Signed Exam: Head CT without contrast History: Dizziness, weakness Comparison studies: Head CT 07/28/2015. Technique: Axial images were obtained from the skull base to the vertex. Coronal and sagittal images reconstructed from the axial data. Intravenous contrast: None Findings: Scalp: No abnormalities. Bones: No fractures, blastic or lytic lesions. Brain sulci: Mildly prominent. Ventricles: Mild compensatory dilatation. No hydrocephalus. Extra-axial spaces: A 7 mm ossification at the right frontal convexity which may represent benign exostosis or possibly small incidental meningioma without mass effect is unchanged. No other mass or fluid collection. Parenchyma: No mass, acute hemorrhage or acute cortical vascular insults. A few scattered hypodensities in the supratentorial white matter are nonspecific, but most compatible with chronic small vessel ischemic changes. Sellar/suprasellar region: No abnormalities. Craniocervical junction: Patent foramen magnum. No Chiari one malformation. Incidental findings: Atherosclerotic calcifications in the carotid siphons. IMPRESSION: No acute intracranial abnormalities. No changes from the previous head CT 07/28/2015. Chronic findings: 1. Mild generalized volume loss. 2. Mild chronic microvascular ischemic changes. Signed by: Dr. Kelvin Addison M.D. on 04/26/2017 8:12 AM Dictated By: KELVIN ADDISON MD 1 Transcribed By: LEO on 04/26/17811 COPY TO: TERESA SALGADO MD CHEST 2 VIEWS [place] [address] Patient Name: TOLU HAYNES MR #: [id number] : 1930 Age/Sex: 86/F Req #: [id number] Adm Physician: Ordered by: TERESA SALGADO MD Report #: [id number] Location: ER Room/Bed: Procedure: [id number] DX/CHEST 2 VIEWS Exam Date: 04/26/17 Exam Time: 0745 REPORT STATUS: Signed EXAMINATION: Chest, CHEST 2 VIEWS INDICATION: Chest pain COMPARISON: Chest 2 views 07/28/2015 FINDINGS: LINES: None. Heart: Normal cardiac silhouette. Vascular: The pulmonary vasculature is within normal limits. Atherosclerotic calcifications of the aortic arch. Mediastinum: No mediastinal, hilar, or axillary mass or lymphadenopathy. Lungs: No parenchymal mass. No focal consolidation. Bibasilar atelectasis. Pleura: No pleural effusion. No pneumothorax. Bones: No acute osseous abnormality. Degenerative changes of the thoracic spine. Soft tissues: Normal. Impression: No acute radiographic abnormality. Signed by: Dr. Patrick Kennedy M.D. on 04/26/2017 9:10 AM Dictated By: PATRICK KENNEDY MD 9 Transcribed By: LEO on 04/26/17909 COPY TO: TERESA SALGADO MD
[2018-05-12 21:51] LABS: BASOPHILS # (AUTO) 0.1 (0.0-0.1); BASOPHILS % 0.3 % (0.0-1.0); EOSINOPHILS % 0.1 % (0.0-6.0); HEMATOCRIT 29.4 % (34.2-44.1); LYMPHOCYTES # (AUTO) 1.2 (1.0-3.2); LYMPHOCYTES % 7.3 % (18.0-39.1); MEAN CORPUSCULAR HGB CONC 30.6 g/dL (31-35); MEAN CORPUSCULAR VOLUME 81.7 fL (81-99); MONOCYTES # (AUTO) 0.9 (0.2-0.8); MONOCYTES % 5.6 % (4.4-11.3); NEUTROPHILS # (AUTO) 14.3 (2.1-6.9); NEUTROPHILS % 86.2 % (38.7-80.0); PLATELET COUNT 365 x10e3/uL (140-360); RED CELL DISTRIBUTION WIDTH 23.4 % (11.7-14.4)
[2018-05-12 21:55] LABS: INR 1.05; PROTHROMBIN TIME 14.6 seconds (11.9-14.5)
[2018-05-12 21:56] LABS: PARTIAL THROMBOPLASTIN TIME 32.9 seconds (23.8-35.5)
[2018-05-12 22:02] LABS: ALBUMIN 2.7 g/dL (3.5-5.0); ANION GAP 12.6 mmol/L (8-16); CALCIUM 8.1 mg/dL (8.4-10.2); CREATININE, SERUM 1.01 mg/dL (0.57-1.11); POTASSIUM 4.6 mmol/L (3.5-5.1)
[2018-05-12 22:08] LABS: CREATINE KINASE MB 1.3 ng/mL (0-5.0)
[2018-05-12] MEDS ORDERED: AMLODIPINE BESYL5 MG PO (22:14)
[2018-05-12] MEDS ORDERED: FERROUS SULFAT325 MG (22:14)
--- NOTE | 2018-05-12 22:25 | Diagnostic Imaging Report ---
EXAM: XR CHEST 1 VIEW DATE: 05/12/2018 9:27 PM INDICATION: Dizziness COMPARISON: 11/29/2017, no report available FINDINGS: Lines and Tubes: None Heart and Mediastinum: Accentuated by low lung voids. Lungs and Pleura: Patchy basilar opacities. Bones and Soft Tissues: No acute findings. IMPRESSION: 1. Basilar opacities may be due to low lung lungs. Superimposed infectious process, particularly on the left, possible. Signed by: Dr. Sheldon Adams MD on 05/12/2018 10:22 PM
[2018-05-12 22:27] LABS: CLARITY,URINE HAZY (CLEAR); COLOR,URINE YELLOW (YELLOW)
[2018-05-12 22:28] LABS: LEUKOCYTE ESTERASE ,URINE 1+ (NEGATIVE); NITRITE,URINE NEGATIVE (NEGATIVE); PROTEIN,URINE DIPSTICK TRACE (NEGATIVE)
[2018-05-12 22:29] LABS: BILIRUBIN,URINE 1+ (NEGATIVE); KETONES,URINE 1+ (NEGATIVE); URINE UROBILINOGEN 0.2 mg/dL (0.2 - 1)
[2018-05-12 22:56] LABS: WBC,URINE (MAN) 21-50 /HPF (0-5)
[2018-05-12 22:57] LABS: BACTERIA,URINE MODERATE /HPF; RBC,URINE 0-5 /HPF (0-5)
[2018-05-12 22:58] LABS: EPITHELIAL CELLS,URINE MODERATE /LPF
[2018-05-12] MEDS ORDERED: SODIUM CHLORIDE 0.9% 1000ML 1,000 ML IV STA (23:04)
[2018-05-12] MEDS ORDERED: SODIUM CHLORIDE 0.9% 1000ML 1,000 ML ONE (23:09)
[2018-05-12] MEDS ORDERED: SODIUM CHLORIDE 0.9% 1000ML 1,000 ML IV ONE (23:15)
[2018-05-12] MEDS ORDERED: CEFTRIAXONE SOD 1 GM/NS 50 ML 50 ML IV ONE (23:15)
[2018-05-12] MEDS: SODIUM CHLORIDE 0.9% 1000ML 1,000 ML IV SCH (23:32)
[2018-05-12] MEDS ORDERED: ONDANSETRON HCL INJ 2MG/ML 2ML 2 MG/ML VIAL IV PRN (23:45)
[2018-05-12] MEDS ORDERED: DEXTROSE 50% SYRINGE 50 ML IV PRN (23:45)
[2018-05-13] VITALS (7 sets, daily range): BP systolic 116–143; BP diastolic 51–80
--- NOTE | 2018-05-13 00:16 | NUR ---
report to MONSE Valadez. Pt is being admitted to room 186
[2018-05-13] MEDS ORDERED: ACETAMINOPHEN 325 MG TAB PO PRN (02:45)
[2018-05-13 05:38] LABS: BASOPHILS % 0.4 % (0.0-1.0); EOSINOPHILS # (AUTO) 0.1 (0.0-0.4); EOSINOPHILS % 0.5 % (0.0-6.0); HEMATOCRIT 23.3 % (34.2-44.1); HEMOGLOBIN 7.4 g/dL (12.0-16.0); LYMPHOCYTES # (AUTO) 1.9 (1.0-3.2); LYMPHOCYTES % 17.9 % (18.0-39.1); MEAN CORPUSCULAR HEMOGLOBIN 25.6 pg (28-32); MEAN CORPUSCULAR HGB CONC 31.8 g/dL (31-35); MEAN CORPUSCULAR VOLUME 80.6 fL (81-99); MONOCYTES % 8.9 % (4.4-11.3); NEUTROPHILS # (AUTO) 7.7 (2.1-6.9); NEUTROPHILS % 71.9 % (38.7-80.0); PLATELET COUNT 275 x10e3/uL (140-360); RED BLOOD COUNT 2.89 x10e6/uL (3.6-5.1); RED CELL DISTRIBUTION WIDTH 23.2 % (11.7-14.4)
[2018-05-13 06:17] LABS: CREATINE KINASE MB 1.2 ng/mL (0-5.0)
[2018-05-13 06:43] LABS: ANION GAP 12.5 mmol/L (8-16); BLOOD UREA NITROGEN 32 mg/dL (7-26); BUN/CREATININE RATIO 42 (6-25); CALCIUM 7.6 mg/dL (8.4-10.2); CARBON DIOXIDE 18 mmol/L (22-29); CHLORIDE 112 mmol/L (98-107); CREATININE, SERUM 0.77 mg/dL (0.57-1.11); EST GLOMERULAR FILTRATION RATE > 60 ML/MIN (60-); GLUCOSE 103 mg/dL (74-118); POTASSIUM 4.5 mmol/L (3.5-5.1); SODIUM 138 mmol/L (136-145)
[2018-05-13 07:05] LABS: ELLIPTOCYTE, RBC SLIGHT
[2018-05-13 07:06] LABS: ANISOCYTOSIS SLIGHT; HYPOCHROMASIA MODERATE; PLATELET ESTIMATE ADEQUATE; PLATELET MORPHOLOGY COMMENT NORMAL; RBC MORPHOLOGY COMMENT NORMAL
[2018-05-13] MEDS ORDERED: INSULIN REGULAR, HUMAN 100 UNIT/1 ML 3ML VIAL SQ SCH (07:30)
[2018-05-13] MEDS: SODIUM CHLORIDE 0.9% 1000ML 1,000 ML IV SCH (08:22)
--- NOTE | 2018-05-13 09:11 | NUR ---
SOCIAL WORK INITIAL ASSESSMENT Melt House Centrifugal Operator to bedside to discuss plan of care with patient/family. CM/SW role and care transitions discussed. Anticipated discharge plan discussed along with duration of care. CM/SW discussed patients right to make decisions in care. CM/SW work hours given. Patient lives: IN HOUSE WITH [facility] GAUTAM Admit/Transfer: VIA ED FROM HOME POA/Emergency contact: [facility] [phone] Current/Previous Home Health: HAS A PROVIDER BUT NOT HOME HEALTH, CANT REMEMBER NAME BUT 4 HOURS A DAY FOR 5 DAYS A WEEK PCP/Follow-up Care: MANOLO Current/Previous DME: [facility] BUT ONLY USES SPORADICALLY Other Services: NONE Employment Status: RETIRED Areas of Concerns: NONE Referral Needs: NONE Education Needs: NONE IMM/JAQUEZ given and signed (if applicable): IMM UPON ADMISSION Goal for discharge: RETURN HOME WITH SON CM/SW left business card at the bedside with contact information. Name and number was also written on the patients whiteboard. Patient verbalized understanding of discussion. CM will follow-up with ongoing discharge and transition of care needs.
--- NOTE | 2018-05-13 10:23 | NUR ---
NOTIFIED OF PATIENT BLOODY AND DARK STOOL.
[2018-05-13] MEDS ORDERED: SODIUM CHLORIDE 0.9% 250ML 250 ML IV ONE (10:45)
[2018-05-13] MEDS: PANTOPRAZOLE SOD 40 MG TABEC PO SCH ×2 (11:44→16:31)
[2018-05-13] MEDS ORDERED: SODIUM CHLORIDE 0.9% 250ML 250 ML ONE (13:55)
--- NOTE | 2018-05-13 16:54 | NUR ---
blood transfusion complete pt tolerated well
[2018-05-13 19:23] LABS: % IRON SATURATION 18 % (15-50); IRON 51 ug/dL (50-170); TOTAL IRON BINDING CAPACITY 290 ug/dL (261-478); TRANSFERRIN 207 mg/dL (180-382)
--- NOTE | 2018-05-13 21:58 | NUR ---
PATIENT CONDITION STABLE WITHOUT DISTRESS, SHE DENIES PAIN. BED ALARM ON, CALL LIGHT WITHIN EASY REACH, FAMILY VISITING WITH THE PATIENT.
[2018-05-13] MEDS ORDERED: CEFTRIAXONE SOD 1 GM/NS 50 ML 50 ML IV SCH (23:15)
[2018-05-14] VITALS: BP 129/59
--- NOTE | 2018-05-14 02:00 | NUR ---
PATIENT IS SOUNDLY ASLEEP, SHE'S EASY TO AROSE. SHE DENIES PAIN, CALL LIGHT WITHIN EASY REACH, BED ALARM ON.
[2018-05-14 04:00] VITALS: BP 123/56
--- NOTE | 2018-05-14 04:48 | NUR ---
PATIENT IS ASLEEP, SHE'S EASY TO AROUSE. SHE DENIES PAIN, NO RESPIRATORY DISTRESS OBSERVED. BED ALARM ON, CALL LIGHT WITHIN EASY REACH.
[2018-05-14 05:19] LABS: BASOPHILS % 0.5 % (0.0-1.0); EOSINOPHILS # (AUTO) 0.2 (0.0-0.4); EOSINOPHILS % 2.3 % (0.0-6.0); HEMATOCRIT 24.2 % (34.2-44.1); HEMOGLOBIN 7.8 g/dL (12.0-16.0); LYMPHOCYTES # (AUTO) 2.1 (1.0-3.2); LYMPHOCYTES % 23.4 % (18.0-39.1); MEAN CORPUSCULAR HEMOGLOBIN 26.1 pg (28-32); MEAN CORPUSCULAR HGB CONC 32.2 g/dL (31-35); MEAN CORPUSCULAR VOLUME 80.9 fL (81-99); MONOCYTES # (AUTO) 0.9 (0.2-0.8); MONOCYTES % 9.9 % (4.4-11.3); NEUTROPHILS # (AUTO) 5.7 (2.1-6.9); NEUTROPHILS % 63.6 % (38.7-80.0); PLATELET COUNT 252 x10e3/uL (140-360); RED BLOOD COUNT 2.99 x10e6/uL (3.6-5.1); RED CELL DISTRIBUTION WIDTH 22.4 % (11.7-14.4)
[2018-05-14 05:50] LABS: ANION GAP 9.7 mmol/L (8-16); BLOOD UREA NITROGEN 22 mg/dL (7-26); BUN/CREATININE RATIO 30 (6-25); CALCIUM 7.6 mg/dL (8.4-10.2); CARBON DIOXIDE 22 mmol/L (22-29); CHLORIDE 112 mmol/L (98-107); CREATININE, SERUM 0.74 mg/dL (0.57-1.11); EST GLOMERULAR FILTRATION RATE > 60 ML/MIN (60-); GLUCOSE 92 mg/dL (74-118); POTASSIUM 3.7 mmol/L (3.5-5.1); SODIUM 140 mmol/L (136-145)
[2018-05-14] MEDS ORDERED: LEVOTHYROXINE SODIUM 88 MCG TAB PO SCH (06:00)
[2018-05-14 07:47] VITALS: BP 142/65
[2018-05-14 08:59] LABS: ANISOCYTOSIS MODE; ELLIPTOCYTE, RBC SLIGHT; HYPOCHROMASIA MODERATE; PLATELET ESTIMATE ADEQUATE; PLATELET MORPHOLOGY COMMENT NORMAL; POIKILOCYTOSIS SLIGHT; RBC MORPHOLOGY COMMENT ABNORMAL
[2018-05-14] MEDS: PANTOPRAZOLE SOD 40 MG TABEC PO SCH ×2 (09:45→16:57)
[2018-05-14 11:49] VITALS: BP 140/66
--- NOTE | 2018-05-14 12:04 | NUR ---
Rounds by hospitalist and orders in place to consult GI, called and notified.
[2018-05-14] MEDS: CEFTRIAXONE SOD 1 GM/NS 50 ML 50 ML IV SCH (12:52)
[2018-05-14] MEDS: AMLODIPINE BESYLATE 5 MG TAB PO SCH (12:52)
--- NOTE | 2018-05-14 14:35 | NUR ---
CM SPOKE TO DR. SCOTT REGARDING PATIENT PLAN OF CARE. IF PATIENT DECLINES EGD/ COLONOSCOPY. PATIENT TO DISCHARGE. CM SPOKE TO BEDSIDE RN HERMANN, PATIENT NOW WANTS TO RECEIVE COLONOSCOPY. GI CONSULT DR. MELARA TO SEE PATIENT AND COMPLETE COLONOSCOPY. DISCHARGE PLAN PENDING RESULTS.
[2018-05-14 15:47] VITALS: BP 134/61
--- NOTE | 2018-05-14 19:25 | NUR ---
PATIENT SITTING UP AT THE SIDE OF THE BED, NO ACUTE DISTRESS OBSERVED. FAMILY MEMBERS VISITING WITH HER, THEY WERE TOLD TO NOTIFY THE PRIMARY NURSE WHEN LEAVING SO THAT THE BED ALARM CAN BE APPLIED TO PREVENT FALL. PATIENT DENIES PAIN, CALL LIGHT WITHIN REACH.
[2018-05-14 20:00] VITALS: BP 148/64
[2018-05-14] MEDS ORDERED: PEG (High)/E-LYTE SOLN 4,000 ML BTL PO ONE (22:15)
[2018-05-14] MEDS ORDERED: BISACODYL 5 MG TAB EC PO ONE (22:15)
--- NOTE | 2018-05-14 22:15 | NUR ---
PATIENT CONDITION REMAINS STABLE WITHOUT DISTRESS, DR MOTA WAS IN TO SEE THE PATIENT, HE DISCUSSED WITH THE PATIENT AND HER SON THE PLAN FOR EGD/COLONOSCOPY TOMORROW MORNING.
--- NOTE | 2018-05-14 23:34 | Consultation ---
DATE OF CONSULTATION: May 14, 2018 GI CONSULT NOTE REASON FOR CONSULTATION: Iron deficiency anemia. HISTORY OF PRESENTING ILLNESS: An 87-year-old white female who got admitted with symptomatic microcytic anemia. Hemoglobin was noted 9 which subsequently dropped down to 7.8 with IV fluid hydration. She is on iron at home. Never had any upper endoscopy or colonoscopy. She noticed passing some dark stool couple of days ago, although family attributes that is secondary to use of iron. No associated abdominal pain. REVIEW OF SYSTEMS: Twelve-point system reviewed, symptomatology is limited as per HPI. Patient has a predominant generalized weakness and exertional shortness of breath. PAST MEDICAL HISTORY: Hypertension, hypothyroidism, and chronic anemia. PAST SURGICAL HISTORY: None. SOCIAL HISTORY: No smoking, alcohol, or any illicit drug use. FAMILY HISTORY: Noncontributory given her advanced age. ALLERGIES: NO KNOWN DRUG ALLERGIES OUTPATIENT MEDICATIONS: Amlodipine, levothyroxine, and iron sulfate. INPATIENT MEDICATIONS: Reviewed as per MAR. PHYSICAL EXAMINATION VITAL SIGNS: Temperature 96.5, pulse 73, respirations 20, blood pressure 134/61, and oxygen saturation 96% on room air. GENERAL: pallor, elderly, frail, not in any acute distress. HEENT: Oral mucosa is moist. Anicteric sclerae. CVS: S1 and S2 regular with 3/6 flow murmur at the apex. LUNGS: Bilaterally grossly clear. ABDOMEN: Obese, soft, nondistended, nontender. No palpable mass or hernia. Positive bowel sounds. EXTREMITIES: Warm. No leg edema. LABS: WBC 8.88, hemoglobin 7.8, down from 9.0; hematocrit 24.2; MCV 80.9; and platelet count 252,000. Sodium 140, potassium 3.7, chloride 112, bicarb 22, BUN 22, creatinine 0.74, and glucose 92. PT 14.6, INR 1.05. Urinalysis negative. Chest x-ray: Bibasilar opacities may be due to low lung volume. Superimposed infectious process particularly on the left possible. Iron profile showed a serum iron 51, TIBC 290, iron saturation 18, and transferrin 207. IMPRESSION: Microcytic anemia, likely iron deficiency. The patient is quite symptomatic from anemia. PLAN: Check stool for occult blood. Clear liquid diet. Upper endoscopy and colonoscopy tomorrow. I thank Dr. Cid for allowing me to participate in the care of this patient. Job#: [id number] CF
[2018-05-15] VITALS: BP 146/67
--- NOTE | 2018-05-15 00:17 | NUR ---
PATIENT VOMITED CLEAR AMOUNT OF EMESIS, MEDICATED WITH ZOFRAN ORDERED. PATIENT IS SITTING ON THE BEDSIDE COMMODE NOW, SPECIFIC INSTRUCTION GIVEN TO CALL FOR ASSISTANCE UPON COMPLETION SO THAT SHE CAN BE ASSISTED TO THE BED.
--- NOTE | 2018-05-15 03:46 | NUR ---
PATIENT IS SOUNDLY ASLEEP, NO RESPIRATORY DISTRESS OBSERVED. BED ALARM ON, CALL LIGHT WITHIN EASY REACH.
[2018-05-15 04:00] VITALS: BP 136/63
[2018-05-15 05:31] LABS: BASOPHILS # (AUTO) 0.1 (0.0-0.1); BASOPHILS % 0.6 % (0.0-1.0); EOSINOPHILS # (AUTO) 0.1 (0.0-0.4); EOSINOPHILS % 1.1 % (0.0-6.0); HEMATOCRIT 26.1 % (34.2-44.1); HEMOGLOBIN 8.2 g/dL (12.0-16.0); MEAN CORPUSCULAR HEMOGLOBIN 25.9 pg (28-32); MEAN CORPUSCULAR HGB CONC 31.4 g/dL (31-35); MEAN CORPUSCULAR VOLUME 82.6 fL (81-99); MONOCYTES # (AUTO) 0.9 (0.2-0.8); MONOCYTES % 8.5 % (4.4-11.3); NEUTROPHILS # (AUTO) 7.3 (2.1-6.9); NEUTROPHILS % 70.4 % (38.7-80.0); PLATELET COUNT 293 x10e3/uL (140-360); RED BLOOD COUNT 3.16 x10e6/uL (3.6-5.1); RED CELL DISTRIBUTION WIDTH 22.3 % (11.7-14.4)
[2018-05-15 07:28] LABS: RBC MORPHOLOGY COMMENT NORMAL
[2018-05-15 07:29] LABS: HOWELL-JOLLY BODIES MODERATE; HYPOCHROMASIA MODERATE
[2018-05-15] MEDS: PANTOPRAZOLE SOD 40 MG TABEC PO SCH ×2 (07:30→17:30)
[2018-05-15 07:35] LABS: PLATELET ESTIMATE ADEQUATE; PLATELET MORPHOLOGY COMMENT FEW LARGE
[2018-05-15 07:36] LABS: ANISOCYTOSIS SLIGHT; ELLIPTOCYTE, RBC SLIGHT
[2018-05-15 08:50] VITALS: BP 148/66
[2018-05-15] MEDS: AMLODIPINE BESYLATE 5 MG TAB PO SCH (08:55)
[2018-05-15 08:59] VITALS: BP 148/66
--- NOTE | 2018-05-15 11:00 | NUR ---
Patient picked up for procedure at this time
[2018-05-15] MEDS ORDERED: EPINEPHRINE HCL 1:1000 1ML 1 MG/ML AMP ONE (11:39)
[2018-05-15] MEDS: CEFTRIAXONE SOD 1 GM/NS 50 ML 50 ML IV SCH (12:00)
[2018-05-15 12:12] VITALS: BP 124/58
[2018-05-15] MEDS ORDERED: DOCUSATE SODIUM 100 MG CAP PO PRN (12:45)
--- NOTE | 2018-05-15 13:00 | NUR ---
Patient returned from procedure and s/p EGD, found mass at the esophagus and fondus, possible malignancy, colonoscopy indicates bleeding polyps, Diverticulosis, internal hemorroids but Mass/malignancy to be addressed first. Rounds by attending and orders in place for CT to abdomen, patient in bed, VS-124/61, HR-62, Temp-97.6, G9Phhz-81%, call light within reach, will monitor.
[2018-05-15] MEDS ORDERED: LIDOCAINE HCL 2% LOCAL INJ 5 ML SDV VIAL INJ ONE (13:13)
[2018-05-15] MEDS ORDERED: PROPOFOL IV EMULSION 10 MG/ML 20 ML VIAL ONE (13:13)
--- NOTE | 2018-05-15 15:36 | Diagnostic Imaging Report ---
EXAM: CT chest, abdomen, and pelvis with contrast INDICATION: Presumed gastric cancer, rule out metastases. COMPARISON: CT chest 04/26/2017. TECHNIQUE: The chest, abdomen, and pelvis was scanned utilizing a multidetector helical scanner from the lung apex through the upper thighs after administration of IV contrast. Coronal and sagittal reconstructions were submitted for interpretation. Routine protocol was performed. IV CONTRAST: 100 mL of Isovue 370 COMPLICATIONS: None RADIATION DOSE: Total exam DLP: 498.9 mGy*cm. CTDIvol has been reviewed. It is below the limits set by the Radiation Protocol Committee (RPC). Dose modulation, iterative reconstruction, and/or weight based adjustment of the mA/kV was utilized to reduce the radiation dose to as low as reasonably achievable. FINDINGS: LINES AND TUBES: None LUNGS AND AIRWAYS: The central airways are patent. There is mild patchy consolidative opacity within the bilateral lower lobes and left upper lobe. Dependent patchy atelectatic changes. Diffuse opacity limits evaluation for lung nodule. PLEURA: The pleural spaces are clear. HEART AND MEDIASTINUM: The thyroid gland is normal. No significant mediastinal, hilar or axillary lymphadenopathy is seen. There is cardiomegaly. Atherosclerotic calcifications of the thoracic aorta and coronary arteries. HEPATOBILIARY: No focal hepatic lesions. No biliary ductal dilatation. Cholelithiasis without CT evidence of cholecystitis. SPLEEN: No splenomegaly. PANCREAS: No focal masses or ductal dilatation. ADRENALS: There is a 1.7 cm indeterminate left adrenal nodule. KIDNEYS/URETERS: No hydronephrosis, stones, or solid mass lesions. PELVIC ORGANS/BLADDER: Unremarkable. PERITONEUM / RETROPERITONEUM: No free air or fluid. LYMPH NODES: No lymphadenopathy. VESSELS: Atherosclerotic changes of the abdominal aorta and branch vessels. There are two right and a single left-sided renal artery aneurysm, measuring up to 1.1 cm on the left and measuring up to 1.1 cm and 0.9 cm on the right. There is focal moderate stenosis of the left proximal common iliac artery and multifocal mild stenoses of the infrarenal abdominal aorta. GI TRACT: No evidence of distention. There is a 6.7 x 4.9 cm mass involving the lesser curvature of the stomach. There are adjacent perigastric lymph nodes, measuring up to 1.1 cm short axis. There is some fluid within the distal esophagus. Colonic diverticulosis without CT evidence of diverticulitis. BONES AND SOFT TISSUES: No acute osseous abdomen. No suspicious lytic or blastic lesions. IMPRESSION: Gastric mass consistent with malignancy. Gastric lymphadenopathy and left adrenal nodule are suspicious for metastatic disease. No evidence of metastatic disease within the thorax. Multifocal patchy opacities in the lower lobes and left upper lobe could represent atelectasis or pneumonia in the appropriate clinical context. Extensive atherosclerotic changes of the abdominal aorta and branch vessels. Focal moderate stenosis of the left common iliac artery. 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 Signed by: Dr. Rk Louise MD on 05/15/2018 3:32 PM
--- NOTE | 2018-05-15 15:37 | Diagnostic Imaging Report ---
Radiographs of the left knee - 3 views HISTORY: Pain COMPARISON: None available. FINDINGS: Bones: No acute displaced fracture. Osseous alignment is within normal limits. Joints: Mild tricompartmental degenerative arthrosis. No osseous erosion. Soft tissues: Scattered vascular calcifications. IMPRESSION: Mild tricompartmental degenerative arthrosis. No osseous erosion. Signed by: Dr. Errol Preciado M.D. on 05/15/2018 3:34 PM
[2018-05-15 16:00] VITALS: BP 123/56
[2018-05-15] MEDS ORDERED: IOPAMIDOL 370 MG/ML 200 ML INFUS..BTL INJ ONE (16:12)
[2018-05-15] MEDS ORDERED: SODIUM CHLORIDE 0.9% 50ML 50 ML ONE (16:12)
[2018-05-15] MEDS ORDERED: SUCRALFATE 1 GM TAB PO SCH (16:30)
--- NOTE | 2018-05-15 18:48 | NUR ---
Patient seen by Dr. Cid, CT completed and explained results to family, patient has malignant mass with mets to lymph node and confirmed findings from EGD/Colonoscopy earlier today. Family agreed for patient to be discharged and to f/u out patient. Will continue same home medications and provided with discharge instructions.
--- NOTE | 2018-05-16 02:01 | Discharge Summary ---
PRIMARY CARE DOCTOR: Dr. Dean Bowie. 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 SECONDARY DIAGNOSES 1. Upper gastrointestinal bleed. 2. Asymptomatic Escherichia coli bacteriuria, status post intravenous Rocephin. 3. Hypertension, stable. PROCEDURES/STUDIES PERFORMED 1. EGD. 2. CT of the abdomen and pelvis and CT of the chest. 3. One unit of packed red blood cell transfusion. CONSULTANTS: MOHINI Viveros. HISTORY: Per H and P. HOSPITAL COURSE: Patient was transfused 1 unit. Initially she refused EGD, subsequently she consented to it. Patient was found to have a large mass in her stomach consistent with gastric cancer. It is viable and oozing a little bit. I had a long conversation with both sons. CT was done for staging, which showed adrenal mets. Therefore, they do not want to proceed with further medical management. I will go ahead and send her home right now. Most likely they will contact her primary care doctor for hospice evaluation. Patient was seen and examined today. It took 40 minutes total to discharge this patient. CONDITION ON DISCHARGE: Fair. DISCHARGE MEDICATIONS: Please see medication reconciliation form. Job#: [id number] RTY cc:Dean Bowie MD
== END 2018-05-15 18:45 | disposition home or self-care (01) ==
LOC: ER 19:58 → INTOOBSV 23:58 → ERHOLD 23:58 → IMCU 05-13 00:36
PROVIDERS: ADMIT Internal Medicine; ATTEND Internal Medicine
DX: C16.1 Malignant neoplasm of fundus of stomach (principal); W19.XXXA Unspecified fall, initial encounter; E03.9 Hypothyroidism, unspecified; I10 Essential (primary) hypertension; K63.5 Polyp of colon; K57.90 Diverticulosis of intestine, part unspecified, without perforation or abscess without bleeding; K64.8 Other hemorrhoids; N39.0 Urinary tract infection, site not specified; B96.89 Other specified bacterial agents as the cause of diseases classified elsewhere; D50.0 Iron deficiency anemia secondary to blood loss (chronic); B96.20 Unspecified Escherichia coli [E. coli] as the cause of diseases classified elsewhere; C16.9 Malignant neoplasm of stomach, unspecified; C79.70 Secondary malignant neoplasm of unspecified adrenal gland
CPT/HCPCS: 36415 ×4; 43239; 45378; 71045; 71260; 73562; 74177; 80048 ×2; 80053; 81001; 82550 ×2; 82553 ×2; 82948; 83540; 84466; 84484 ×2; 85025 ×4; 85610; 85730; 86850; 86900; 86920; 87040; 87086; 87186; 88305; 88312; 93005; 96376; 99284; G0378 ×4; J0696 ×2; J2001; J2405; J2704; J7030 ×2; J7050; P9016; Q9967; S0164 ×3; J0171

== ENCOUNTER 2018-11-28 18:47 | Observation (INO) | payer MEDICARE ==
[~2018-11-28] VITALS: Ht 167.6 cm; Wt 72.6 kg
[~2018-11-28 18:47] MED LIST changes: +FERROUS SULFAT325 MG
[2018-11-28 19:12] LABS: BASOPHILS % 0.4 % (0.0-1.0); EOSINOPHILS # (AUTO) 0.1 (0.0-0.4); EOSINOPHILS % 1.4 % (0.0-6.0); LYMPHOCYTES # (AUTO) 1.5 (1.0-3.2); LYMPHOCYTES % 15.3 % (18.0-39.1); MEAN CORPUSCULAR HEMOGLOBIN 21.5 pg (28-32); MEAN CORPUSCULAR HGB CONC 29.2 g/dL (31-35); MEAN CORPUSCULAR VOLUME 73.7 fL (81-99); MONOCYTES # (AUTO) 0.8 (0.2-0.8); MONOCYTES % 8.5 % (4.4-11.3); PLATELET COUNT 390 x10e3/uL (140-360); RED BLOOD COUNT 2.74 x10e6/uL (3.6-5.1); RED CELL DISTRIBUTION WIDTH 18.3 % (11.7-14.4)
[2018-11-28] MEDS ORDERED: SUPER B-COMPL400 MCG PO (19:12)
[2018-11-28] MEDS ORDERED: VITAMIN B-121000 MCG PO (19:12)
[2018-11-28] MEDS ORDERED: AMLODIPINE BES2.5 MG PO (19:12)
[2018-11-28 19:18] LABS: HEMATOCRIT 20.2 % (34.2-44.1); HEMOGLOBIN 5.9 g/dL (12.0-16.0)
[2018-11-28 19:26] LABS: INR 1.08; PROTHROMBIN TIME 14.5 seconds (11.9-14.5)
[2018-11-28 19:36] LABS: ALANINE AMINOTRANSFERASE 8 IU/L (0-55); ALBUMIN 2.5 g/dL (3.5-5.0); ALBUMIN/GLOBULIN RATIO 0.8 (0.8-2.0); ALKALINE PHOSPHATASE 66 IU/L (40-150); ANION GAP 11.2 mmol/L (8-16); BLOOD UREA NITROGEN 25 mg/dL (7-26); BUN/CREATININE RATIO 29 (6-25); CALCIUM 8.1 mg/dL (8.4-10.2); CARBON DIOXIDE 23 mmol/L (22-29); CHLORIDE 108 mmol/L (98-107); CREATINE KINASE 51 IU/L (29-168); CREATININE, SERUM 0.86 mg/dL (0.57-1.11); EST GLOMERULAR FILTRATION RATE > 60 ML/MIN (60-); GLUCOSE 106 mg/dL (74-118); POTASSIUM 4.2 mmol/L (3.5-5.1); SODIUM 138 mmol/L (136-145)
--- NOTE | 2018-11-28 19:39 | NUR ---
CONSENT OBTAINED FOR TRANSFUSION OF BLOOD PRODUCTS
[2018-11-28 19:43] LABS: BILIRUBIN,URINE NEGATIVE (NEGATIVE); CLARITY,URINE SL CLOUDY (CLEAR); COLOR,URINE YELLOW (YELLOW); KETONES,URINE NEGATIVE (NEGATIVE); LEUKOCYTE ESTERASE ,URINE SMALL (NEGATIVE); NITRITE,URINE POSITIVE (NEGATIVE); PROTEIN,URINE DIPSTICK NEGATIVE (NEGATIVE); URINE UROBILINOGEN 0.2 mg/dL (0.2 - 1)
[2018-11-28 19:55] LABS: BACTERIA,URINE MANY /HPF; EPITHELIAL CELLS,URINE RARE /LPF; RBC,URINE 0-5 /HPF (0-5)
[2018-11-28] MEDS: CEFTRIAXONE SOD 1 GM/NS 50 ML 50 ML IV SCH (20:04)
--- NOTE | 2018-11-28 20:08 | Diagnostic Imaging Report ---
EXAMINATION: CHEST SINGLE (PORTABLE) INDICATION: Short of breath COMPARISON: Chest CT 05/15/2018 FINDINGS: AP view TUBES and LINES: None. LUNGS: Faint reticular bilateral infrahilar opacities, corresponds to scarring seen on chest CT 05/15/2018. There is mild prominence of the central pulmonary vasculature, consistent with pulmonary venous congestion. No consolidations or pulmonary edema. PLEURA: No pleural effusion or pneumothorax. HEART AND MEDIASTINUM: The cardiomediastinal silhouette is unremarkable. There are atherosclerotic calcifications within the aorta. BONES AND SOFT TISSUES: No acute osseous lesion. Soft tissues are unremarkable. UPPER ABDOMEN: No free air under the diaphragm. IMPRESSION: No acute thoracic abnormality. Chronic scarring/atelectasis in the lung bases. Signed by: Fran Rosado DO on 11/28/2018 8:05 PM
[2018-11-28] MEDS ORDERED: ONDANSETRON HCL INJ 2MG/ML 2ML 2 MG/ML VIAL IV PRN (20:15)
[2018-11-28] MEDS ORDERED: SODIUM CHLORIDE 0.9% 250ML 250 ML IV ONE (20:15)
[2018-11-28] MEDS ORDERED: SODIUM CHLORIDE FLUSH 10 ML SYR INJ PRN (20:15)
[2018-11-28 21:00] VITALS: BP 147/65
[2018-11-28] MEDS ORDERED: HYDRALAZINE HCL 20 MG/ML VIAL IV PRN (21:30)
[2018-11-28 23:45] VITALS: BP 161/67
[2018-11-29] MEDS: ACETAMINOPHEN 325 MG TAB PO PRN ×3 (00:18→23:53)
[2018-11-29] MEDS: FUROSEMIDE INJ 10 MG/ML 2 ML VIAL IV PRN ×2 (01:42→06:07)
[2018-11-29] MEDS ORDERED: SODIUM CHLORIDE 0.9% 250ML 250 ML ONE ×2 (03:03→19:58)
[2018-11-29 04:25] VITALS: BP 165/70
--- NOTE | 2018-11-29 07:00 | NUR ---
BEDSIDE SHIFT REPORT FROM DOUBLE REAMER OPERATOR RN. PT DENIES NEEDS AT THIS TIME.
[2018-11-29 07:29] VITALS: BP 146/63
[2018-11-29 08:00] VITALS: BP 146/63
[2018-11-29] MEDS: FOLIC ACID/CYANOCOB/PYRIDOXINE TAB PO SCH (08:31)
[2018-11-29] MEDS: AMLODIPINE BESYLATE 5 MG TAB PO SCH (08:31)
[2018-11-29] MEDS: CYANOCOBALAMIN 1,000 MCG TAB PO SCH (08:31)
[2018-11-29] MEDS: LEVOTHYROXINE SODIUM 88 MCG TAB PO SCH (08:31)
[2018-11-29] MEDS ORDERED: [UNRECOGNIZED DRUG - OTHER] PO SCH (09:00)
[2018-11-29] MEDS ORDERED: NON-FORMULARY MEDICATION (Amlodipine Besylate 2.5 MG) PO SCH (09:00)
[2018-11-29] MEDS ORDERED: VITAMIN B COMP W C PO SCH (09:00)
[2018-11-29] MEDS ORDERED: FOLIC ACID PO SCH (09:00)
[2018-11-29 09:09] LABS: BASOPHILS # (AUTO) 0.1 (0.0-0.1); BASOPHILS % 0.6 % (0.0-1.0); EOSINOPHILS # (AUTO) 0.1 (0.0-0.4); EOSINOPHILS % 1.3 % (0.0-6.0); HEMATOCRIT 28.7 % (34.2-44.1); HEMOGLOBIN 8.9 g/dL (12.0-16.0); LYMPHOCYTES % 10.2 % (18.0-39.1); MEAN CORPUSCULAR HEMOGLOBIN 23.5 pg (28-32); MEAN CORPUSCULAR VOLUME 75.9 fL (81-99); MONOCYTES # (AUTO) 0.9 (0.2-0.8); MONOCYTES % 8.7 % (4.4-11.3); NEUTROPHILS # (AUTO) 7.9 (2.1-6.9); NEUTROPHILS % 78.7 % (38.7-80.0); PLATELET COUNT 329 x10e3/uL (140-360); RED BLOOD COUNT 3.78 x10e6/uL (3.6-5.1); RED CELL DISTRIBUTION WIDTH 17.4 % (11.7-14.4)
[2018-11-29 09:28] LABS: ANION GAP 14.5 mmol/L (8-16); BLOOD UREA NITROGEN 24 mg/dL (7-26); BUN/CREATININE RATIO 31 (6-25); CALCIUM 8.2 mg/dL (8.4-10.2); CARBON DIOXIDE 23 mmol/L (22-29); CHLORIDE 107 mmol/L (98-107); CREATININE, SERUM 0.78 mg/dL (0.57-1.11); EST GLOMERULAR FILTRATION RATE > 60 ML/MIN (60-); GLUCOSE 121 mg/dL (74-118); POTASSIUM 3.5 mmol/L (3.5-5.1); SODIUM 141 mmol/L (136-145)
[2018-11-29 11:50] VITALS: BP 151/65
--- NOTE | 2018-11-29 13:26 | NUR ---
Bridgett Sims L[employer] ARTILLERY CREWMEMBER with Dr. Cid came to CM and stated she will keep the pt one more day, as she is awaiting sensitivity report on UA cx. Pt is Day 1 Obs
--- NOTE | 2018-11-29 19:51 | History and Physical ---
PRIMARY CARE PHYSICIAN: Dr. Dean Bowie. HOSPITAL PHYSICIAN: Fredi Cid MD. CHIEF COMPLAINT: Generalized weakness and elevated blood pressure. HISTORY OF PRESENT ILLNESS: Ms. Tri Johnson presented to the ER with complaints of generalized weakness and elevated blood pressure for the past few days. She has a history of reported high blood pressure, hypothyroidism, anemia, and chronic tumor, which she sees oncologist for and has had multiple blood transfusions as a result. She reports that she is not a candidate for chemotherapy or surgery due to her age. She denies any dysuria, abdominal pain, nausea, vomiting, or change in her bowel habits. In ER, her hemoglobin was 7.9, hematocrit 20.2, all others within normal limits. PT and INR were within normal limits. Urine was positive for nitrites, WBC 10,000 to 20,000, and bacteria. Stool culture has been sent. She will be admitted for blood transfusion. PAST MEDICAL HISTORY: Hypertension, stomach tumor, hypothyroidism, and chronic anemia. MEDICATIONS: Please see medication list. ALLERGIES: NO KNOWN ALLERGIES. SOCIAL HISTORY: She denies any alcohol, tobacco, or illicit drug use. She is ambulatory and lives at home. FAMILY HISTORY: Father has heart attack. Mother also has heart disease. Sisters of cancer. REVIEW OF SYSTEMS: GENERAL: No weight chances, alert, awake, and oriented x3. ENT: No mouth ulcers. PERRLA. PULMONARY: No shortness of breath. Lungs are clear to auscultation. CARDIOVASCULAR: No murmurs or gallops. ABDOMEN: Soft, nontender. No abdominal pain, nausea, or vomiting. PHYSICAL EXAMINATION: VITAL SIGNS: Upon arrival, temperature 96.8, pulse 70, BP 151/65, respirations 18, and O2 saturation 97%. GENERAL: In no acute distress. HEENT: Normocephalic and atraumatic. LUNGS: Clear. CARDIOVASCULAR: S1 and S2. No murmurs or rubs. ABDOMEN: Soft and nontender. EXTREMITIES: No edema. No cyanosis. IMPRESSION: 1. Symptomatic anemia with a hemoglobin of 5.9. 2. Urinary tract infection, symptomatic. 3. Hypertension, elevated. 4. Hypothyroidism. 5. History of stomach tumor. PLAN: She has received 2 units of PRBCs. Hemoglobin is now up to 8.9. We will continue to monitor and transfuse if hemoglobin is less than 7. Urine culture is growing gram negative rods, she is on Rocephin, but we will await for final sensitivity results. We will discharge her home once sensitivity is back with p.o. antibiotics. Dictated by Bridgett Sims, ANP Krissching MD ERNST Woods/SHANTANUL /[id number]
[2018-11-29] MEDS: CEFTRIAXONE SOD 1 GM/NS 50 ML 50 ML IV SCH (20:09)
[2018-11-29 20:31] VITALS: BP 156/67
[2018-11-30 00:28] VITALS: BP 146/64
[2018-11-30 04:44] VITALS: BP 124/57
[2018-11-30 05:23] LABS: BASOPHILS # (AUTO) 0.1 (0.0-0.1); BASOPHILS % 0.7 % (0.0-1.0); EOSINOPHILS # (AUTO) 0.2 (0.0-0.4); EOSINOPHILS % 2.3 % (0.0-6.0); HEMATOCRIT 27.4 % (34.2-44.1); HEMOGLOBIN 8.4 g/dL (12.0-16.0); LYMPHOCYTES # (AUTO) 1.8 (1.0-3.2); LYMPHOCYTES % 20.6 % (18.0-39.1); MEAN CORPUSCULAR HEMOGLOBIN 22.8 pg (28-32); MEAN CORPUSCULAR HGB CONC 30.7 g/dL (31-35); MEAN CORPUSCULAR VOLUME 74.5 fL (81-99); MONOCYTES # (AUTO) 0.9 (0.2-0.8); MONOCYTES % 10.1 % (4.4-11.3); NEUTROPHILS # (AUTO) 5.8 (2.1-6.9); NEUTROPHILS % 65.6 % (38.7-80.0); PLATELET COUNT 317 x10e3/uL (140-360); RED BLOOD COUNT 3.68 x10e6/uL (3.6-5.1); RED CELL DISTRIBUTION WIDTH 17.8 % (11.7-14.4)
--- NOTE | 2018-11-30 07:00 | NUR ---
received bedside report from community health representative RN. pt resting in bed, in stable condition. will continue to monitor.
[2018-11-30 07:47] VITALS: BP 124/58
[2018-11-30 07:48] VITALS: BP 124/58
[2018-11-30] MEDS ORDERED: ONDANSETRON HCL 4 MG ORAL DISINTEGRATING TAB PO PRN (08:45)
[2018-11-30] MEDS: FOLIC ACID/CYANOCOB/PYRIDOXINE TAB PO SCH (09:12)
[2018-11-30] MEDS: CYANOCOBALAMIN 1,000 MCG TAB PO SCH (09:12)
[2018-11-30] MEDS: AMLODIPINE BESYLATE 5 MG TAB PO SCH (09:12)
[2018-11-30] MEDS: LEVOTHYROXINE SODIUM 88 MCG TAB PO SCH (09:12)
[2018-11-30 09:58] VITALS: BP 124/58
[2018-11-30] MEDS ORDERED: CIPRO500 MG PO (13:40)
[2018-11-30 13:50] VITALS: BP 125/60
--- NOTE | 2018-11-30 18:30 | Discharge Summary ---
PRIMARY CARE PHYSICIAN: Dr. Dean Bowie. FINAL DIAGNOSES: 1. Symptomatic anemia, status post transfusion. 2. Urinary tract infection, asymptomatic. 3. Hypertension. 4. Hypothyroidism. 5. History of stomach tumor. CONSULTANTS: None. PROCEDURES DONE: The patient was transfused with 2 units of PRBCs. HISTORY: Per HPI. HOSPITAL COURSE: Mrs Johnson was admitted on November 29/2019, with generalized weakness due to acute anemia. She was noted to have hemoglobin of 5.9, hematocrit 20.2. She was transfused a total of 2 units of PRBCs. She was also noted to have urinary tract infection. She was started on Rocephin and urine culture was positive for E coli. Today, she is feeling much better, hemoglobin was monitored and it is stable at 8.4 today. She is afebrile, with No shortness of breath, chest pain, or dysuria. We will discharge home to follow up with her pcp and oncologist per appt. PHYSICAL EXAMINATION: VITAL SIGNS: Today, temperature is 96.5, pulse is 65, blood pressure 124/58, respirations 20, and SpO2 is 98. GENERAL: In no acute distress. Alert, awake, and oriented. HEENT: Normocephalic and atraumatic. LUNGS: Clear to auscultation. CARDIOVASCULAR: Heart rate and rhythm normal. No murmurs or rubs. ABDOMEN: Soft and nontender. EXTREMITIES: No edema and no cyanosis. CONDITION AT DISCHARGE: Stable and Improved. DISCHARGE MEDICATIONS: See medication reconciliation. She was given Cipro p.o. b.i.d. for UTI. FOLLOWUP: 1. With Dr. Dean Bowie in 1-2 weeks. 2. Follow up with Oncology per appointment on December 08, 2018. JESSA Patten MY/MODL /[id number] cc: Dean ORDAZ
== END 2018-11-30 15:34 | disposition home or self-care (01) ==
LOC: ER 18:47 → ERHOLD 20:14 → MED/SURG 21:00
PROVIDERS: ADMIT Internal Medicine; ATTEND Internal Medicine
DX: D64.9 Anemia, unspecified (principal); N39.0 Urinary tract infection, site not specified; I10 Essential (primary) hypertension; E03.9 Hypothyroidism, unspecified; Z85.028 Personal history of other malignant neoplasm of stomach; K21.9 Gastro-esophageal reflux disease without esophagitis; E55.9 Vitamin D deficiency, unspecified
CPT/HCPCS: 36415 ×3; 71045; 80048; 80053; 81001; 82550; 82553; 83880; 84484; 85025 ×3; 85610; 85730; 86850; 86900; 86920; 87086; 87186; 93005; 99284; G0378 ×3; J0696 ×2; J1940; J7050 ×2; P9016 ×2

== ENCOUNTER 2019-03-01 14:53 | Inpatient (IN) | payer MEDICARE ==
[~2019-03-01] VITALS: Ht 165.1 cm; Wt 68.9 kg
[~2019-03-01 14:53] MED LIST changes: +AMLODIPINE BES2.5 MG PO; +CIPRO500 MG PO; +SUPER B-COMPL400 MCG PO; +VITAMIN B-121000 MCG PO; +ZOFRAN8 MG PO
[2019-03-01 16:10] LABS: BASOPHILS # (AUTO) 0.1 (0.0-0.1); BASOPHILS % 0.5 % (0.0-1.0); EOSINOPHILS # (AUTO) 0.1 (0.0-0.4); EOSINOPHILS % 0.6 % (0.0-6.0); LYMPHOCYTES # (AUTO) 1.1 (1.0-3.2); LYMPHOCYTES % 11.8 % (18.0-39.1); MEAN CORPUSCULAR HGB CONC 29.1 g/dL (31-35); MONOCYTES # (AUTO) 0.7 (0.2-0.8); NEUTROPHILS # (AUTO) 7.5 (2.1-6.9); NEUTROPHILS % 79.6 % (38.7-80.0); PLATELET COUNT 360 x10e3/uL (140-360); RED BLOOD COUNT 2.64 x10e6/uL (3.6-5.1); RED CELL DISTRIBUTION WIDTH 17.6 % (11.7-14.4)
[2019-03-01 16:13] LABS: HEMATOCRIT 22.7 % (34.2-44.1); HEMOGLOBIN 6.6 g/dL (12.0-16.0)
[2019-03-01 16:14] LABS: INR 1.07; PARTIAL THROMBOPLASTIN TIME 33.1 seconds (23.8-35.5); PROTHROMBIN TIME 14.4 seconds (11.9-14.5)
[2019-03-01 16:23] LABS: ALANINE AMINOTRANSFERASE 8 IU/L (0-55); ALBUMIN 2.5 g/dL (3.5-5.0); ALBUMIN/GLOBULIN RATIO 0.8 (0.8-2.0); ALKALINE PHOSPHATASE 61 IU/L (40-150); ANION GAP 11.4 mmol/L (8-16); BLOOD UREA NITROGEN 20 mg/dL (7-26); BUN/CREATININE RATIO 23 (6-25); CALCIUM 7.8 mg/dL (8.4-10.2); CARBON DIOXIDE 23 mmol/L (22-29); CHLORIDE 107 mmol/L (98-107); CREATININE, SERUM 0.87 mg/dL (0.57-1.11); EST GLOMERULAR FILTRATION RATE > 60 ML/MIN (60-); GLUCOSE 100 mg/dL (74-118); POTASSIUM 4.4 mmol/L (3.5-5.1); SODIUM 137 mmol/L (136-145)
[2019-03-01] MEDS ORDERED: SODIUM CHLORIDE 0.9% 250ML 250 ML IV ONE (18:00)
[2019-03-01] MEDS ORDERED: INFLUENZA VIRUS VAC SPLIT INJ 0.5 ML SYR IM SCH (23:17)
[2019-03-01 23:28] VITALS: BP 155/65
[2019-03-01 23:30] VITALS: BP 155/65
[2019-03-01 23:35] VITALS: BP 155/65
--- NOTE | 2019-03-01 23:40 | NUR ---
RECEIVED PATIENT FROM ER IN STABLE CONDITION, NO SIGNS OF DISTRESS NOTED. PATIENT'S SON IS AT BEDSIDE AND IS CURRENTLY BEING ADMINISTERED HER SECOND UNIT OF BLOOD. NO SIGNS OF ADVERSE REACTIONS AND PATIENT IS RESTING COMFORTABLY. BED IS IN LOWEST POSITION, BOTH SIDE RAILS ARE UP, CALL LIGHT WITHIN EASY REACH, WILL CONTINUE TO MONITOR.
[2019-03-01 23:50] VITALS: BP 147/65
--- NOTE | 2019-03-02 01:15 | NUR ---
PATIENT HAS COMPLETED HER SECOND UNIT OF BLOOD, NO SIGNS OF DISTRESS OR NO ADVERSE REACTIONS NOTED. PATIENT RESTING COMFORTABLY IN BED, WILL CONTINUE TO MONITOR.
[2019-03-02 04:00] VITALS: BP 147/66
[2019-03-02 06:16] LABS: BASOPHILS % 0.5 % (0.0-1.0); EOSINOPHILS # (AUTO) 0.1 (0.0-0.4); EOSINOPHILS % 1.4 % (0.0-6.0); HEMATOCRIT 25.3 % (34.2-44.1); HEMOGLOBIN 7.8 g/dL (12.0-16.0); LYMPHOCYTES # (AUTO) 1.6 (1.0-3.2); LYMPHOCYTES % 18.3 % (18.0-39.1); MEAN CORPUSCULAR HEMOGLOBIN 26.2 pg (28-32); MEAN CORPUSCULAR HGB CONC 30.8 g/dL (31-35); MEAN CORPUSCULAR VOLUME 84.9 fL (81-99); MONOCYTES # (AUTO) 0.8 (0.2-0.8); MONOCYTES % 9.2 % (4.4-11.3); NEUTROPHILS % 70.1 % (38.7-80.0); PLATELET COUNT 317 x10e3/uL (140-360); RED BLOOD COUNT 2.98 x10e6/uL (3.6-5.1)
[2019-03-02 06:24] LABS: ALANINE AMINOTRANSFERASE 6 IU/L (0-55); ALBUMIN 2.1 g/dL (3.5-5.0); ALBUMIN/GLOBULIN RATIO 0.8 (0.8-2.0); ALKALINE PHOSPHATASE 52 IU/L (40-150); ANION GAP 8.2 mmol/L (8-16); BLOOD UREA NITROGEN 20 mg/dL (7-26); BUN/CREATININE RATIO 28 (6-25); CALCIUM 7.6 mg/dL (8.4-10.2); CARBON DIOXIDE 25 mmol/L (22-29); CHLORIDE 111 mmol/L (98-107); CREATININE, SERUM 0.72 mg/dL (0.57-1.11); EST GLOMERULAR FILTRATION RATE > 60 ML/MIN (60-); GLUCOSE 98 mg/dL (74-118); POTASSIUM 4.2 mmol/L (3.5-5.1); SODIUM 140 mmol/L (136-145)
[2019-03-02 07:57] VITALS: BP 164/74
--- NOTE | 2019-03-02 08:10 | NUR ---
REPORT GIVEN TO MONSE SAXENA AT THIS TIME.
--- NOTE | 2019-03-02 08:26 | NUR ---
PATIENT SITTING AT BED SIDE EATING BREAKFAST, NO COMPLAIN VOICED. BED IN LOWER POSITION, CALL LIGHT AT REACH.
[2019-03-02 08:30] VITALS: BP 164/74
--- NOTE | 2019-03-02 11:20 | NUR ---
PATIENT ASSISTED TO THE RESTROOM AND BACK TO BED, CALL LIGHT AT REACH.
[2019-03-02 11:23] VITALS: BP 141/61
[2019-03-02 14:17] LABS: HEMATOCRIT 28.5 % (34.2-44.1); HEMOGLOBIN 8.9 g/dL (12.0-16.0)
--- NOTE | 2019-03-02 14:20 | History and Physical ---
PRIMARY CARE PHYSICIAN: Dr. Dean Bowie. CHIEF COMPLAINT: Dizziness and shortness of breath. HISTORY OF PRESENT ILLNESS: This is an 88-year-old female with past medical history of hypertension, hypothyroidism, chronic anemia due to stomach tumor, presented to the ER due to dizziness with low blood count. She has had multiple admissions in the past for similar problems with symptomatic anemia. She denies any chest pain, fever, chills, nausea, vomiting, or change in LOC. Upon arrival, her hemoglobin was 6.6. We will admit the patient for blood transfusion and further management. PAST MEDICAL HISTORY: 1. Hypertension. 2. Hypothyroidism. 3. Chronic anemia. 4. Inoperable GI tumor. PAST SURGICAL HISTORY: None. FAMILY MEDICAL HISTORY: Father and mother had heart attack, and sister had of cancer. SOCIAL HISTORY: She denies any tobacco, alcohol, or illicit drug use. She lives with family. ALLERGIES: SHE HAS NO KNOWN ALLERGIES. REVIEW OF SYSTEMS: GENERAL: Fatigue. HEENT: No head trauma. LUNGS: No shortness of breath or cough. CARDIOVASCULAR: No chest pain or palpitations. GI: No nausea, vomiting, or diarrhea. : No dysuria or hematuria. NEURO: Dizziness. MUSCULOSKELETAL: No swelling. SKIN: Dry and intact. PHYSICAL EXAMINATION: VITAL SIGNS: Temperature 97.1, pulse is 77, respirations 15, blood pressure 141/61, and pulse ox is 94% on room air. GENERAL: No acute distress. HEENT: Normocephalic and atraumatic. NECK: Supple. LUNGS: Clear to auscultation. CARDIOVASCULAR: Regular rate and rhythm. GI: Soft and nontender. NEUROLOGIC: Alert, awake, and oriented x3. MUSCULOSKELETAL: Moves all extremities. SKIN: Dry. LABORATORY DATA: WBC 9.42, hemoglobin is 6.6, hematocrit is 22.7, and platelets 360. Sodium 137, potassium 4.4, creatinine 0.87, estimated GFR is greater than 60, glucose is 100, and calcium is 7.8. PT 14.4, INR 1.07, and APTT 33.1. IMPRESSION AND PLAN: 1. Symptomatic anemia with hemoglobin of 6.6. She was transfused with 2 units of PRBCs. Hemoglobin is 7.8 after transfusion. We will recheck one more time. 2. Hypertension. We will resume home medication. 3. Hypothyroidism. We will resume home dose of 88 mcg of Synthroid. 4. Low vitamin B12. Resume her home supplements. 5. History of stomach tumor. Per the patient, it is inoperable and not a candidate for chemo due to her age. She follows up with Dr. Leblanc for Hematology as outpatient. 6. Deep vein thrombosis prophylaxis. No chemical anticoagulation due to anemia. Plan is to monitor H and H post transfusion. If remains above 7.5, may discharge home to follow up with her PCP and Hematology in 1 week. Dictated by JESSA Patten Krissching Martin Cid MD MY/MODL /[id number]
[2019-03-02 15:41] VITALS: BP 138/61
--- NOTE | 2019-03-02 15:48 | NUR ---
FLU VACCINE ADMINISTERED ORDERED. PATIENT IS ABOUT TO BE DISCHARGED. AWAITING FOR TRANSPORTATION.
--- NOTE | 2019-03-02 15:55 | NUR ---
Visit made by the Spiritual Care Department Pastoral Visitor, Hortensia Savage. PV provided pastoral presence, prayer, hospitality, and supportive listening. Pastoral Visitor informed pt/family of the scope of [employer] and availability. COLLEEN RENTERIA Marksmanship Instructor Spiritual Care Department O: [phone] Pager: [phone] ([phone] calling from)
[2019-03-02] MEDS ORDERED: INFLUENZA VIRUS VAC SPLIT INJ 0.5 ML SYR IM SCH (16:00)
--- NOTE | 2019-03-02 17:30 | NUR ---
PATIENT DISCHARGED HOME. DISCHARGE INSTRUCTIONS AND FOLLOW UP GIVEN TO PATIENT, SHE VERBALIZED UNDERSTANDING. IV TO RIGHT FOREARM REMOVED WITH TIP INTACT. ALL PERSONAL ITEMS TAKEN WITH PATIENT. LEFT UNIT PER WHEEL CHAIR TO FRONT LOBBY IN STABLE CONDITION.
[2019-03-03] MEDS ORDERED: LEVOTHYROXINE SODIUM 88 MCG TAB PO SCH (06:00)
[2019-03-03] MEDS ORDERED: AMLODIPINE BESYLATE 5 MG TAB PO SCH (09:00)
[2019-03-03] MEDS ORDERED: CYANOCOBALAMIN 1,000 MCG TAB PO SCH (09:00)
== END 2019-03-02 17:25 | disposition home or self-care (01) | DRG 376 ==
LOC: ER 14:53 → ERHOLD 17:54 → MED/SURG3 20:56
PROVIDERS: ADMIT Internal Medicine; ATTEND Internal Medicine
PROC: 30233N1 Transfusion of Nonautologous Red Blood Cells into Peripheral Vein, Percutaneous Approach (ICD-10-PCS; principal; 2019-03-01)
DX: D37.1 Neoplasm of uncertain behavior of stomach (principal); D63.0 Anemia in neoplastic disease; R53.1 Weakness; I10 Essential (primary) hypertension; E03.9 Hypothyroidism, unspecified; E53.8 Deficiency of other specified B group vitamins
CPT/HCPCS: 36415; 80053; 85014; 85018; 85025; 85610; 85730; 86850; 86900; 86920; 99284; J7050; P9016

== ENCOUNTER 2019-03-17 15:52 | Observation (INO) | payer MEDICARE ==
[~2019-03-17] VITALS: Ht 165.1 cm; Wt 68.9 kg
[2019-03-17 17:04] LABS: BILIRUBIN,URINE NEGATIVE (NEGATIVE); CLARITY,URINE SL CLOUDY (CLEAR); COLOR,URINE YELLOW (YELLOW); KETONES,URINE NEGATIVE (NEGATIVE); LEUKOCYTE ESTERASE ,URINE NEGATIVE (NEGATIVE); NITRITE,URINE NEGATIVE (NEGATIVE); PROTEIN,URINE DIPSTICK NEGATIVE (NEGATIVE); URINE UROBILINOGEN 0.2 mg/dL (0.2 - 1)
[2019-03-17 17:19] LABS: BACTERIA,URINE MANY /HPF; EPITHELIAL CELLS,URINE FEW /LPF; RBC,URINE 0-5 /HPF (0-5)
[2019-03-17 17:20] LABS: BASOPHILS % 0.3 % (0.0-1.0); EOSINOPHILS # (AUTO) 0.1 (0.0-0.4); EOSINOPHILS % 1.1 % (0.0-6.0); HEMATOCRIT 23.3 % (34.2-44.1); LYMPHOCYTES # (AUTO) 1.6 (1.0-3.2); LYMPHOCYTES % 17.5 % (18.0-39.1); MEAN CORPUSCULAR HEMOGLOBIN 24.5 pg (28-32); MEAN CORPUSCULAR HGB CONC 29.2 g/dL (31-35); MEAN CORPUSCULAR VOLUME 84.1 fL (81-99); MONOCYTES # (AUTO) 0.8 (0.2-0.8); MONOCYTES % 8.4 % (4.4-11.3); NEUTROPHILS # (AUTO) 6.7 (2.1-6.9); NEUTROPHILS % 72.3 % (38.7-80.0); PLATELET COUNT 446 x10e3/uL (140-360); RED BLOOD COUNT 2.77 x10e6/uL (3.6-5.1); RED CELL DISTRIBUTION WIDTH 18.5 % (11.7-14.4)
[2019-03-17 17:24] LABS: HEMOGLOBIN 6.8 g/dL (12.0-16.0)
[2019-03-17] MEDS ORDERED: SODIUM CHLORIDE 0.9% 250ML 250 ML IV ONE (17:30)
[2019-03-17 17:31] LABS: INR 1.07; PROTHROMBIN TIME 14.4 seconds (11.9-14.5)
[2019-03-17 17:41] LABS: ALBUMIN 2.7 g/dL (3.5-5.0); ALBUMIN/GLOBULIN RATIO 0.9 (0.8-2.0); ANION GAP 13.4 mmol/L (8-16); CALCIUM 8.1 mg/dL (8.4-10.2); CREATININE, SERUM 0.92 mg/dL (0.57-1.11); POTASSIUM 4.4 mmol/L (3.5-5.1)
--- NOTE | 2019-03-17 17:45 | Diagnostic Imaging Report ---
EXAM: CHEST SINGLE (PORTABLE) DATE: 03/17/2019 4:24 PM INDICATION: Weakness COMPARISON: CT chest from 05/15/2018, chest radiograph from 05/12/2018 FINDINGS: The trachea is midline. There are mildly increased bibasilar opacities suggestive of atelectasis. There is no evidence for large focal consolidation, pneumothorax, or significant pleural effusion. The cardiomediastinal silhouette is stable in appearance. No acute osseous abnormalities identified. IMPRESSION: No acute cardiopulmonary process identified. Signed by: Dr. Delroy Rogers MD on 03/17/2019 5:42 PM
[2019-03-17 17:47] LABS: CREATINE KINASE MB 1.4 ng/mL (0-5.0)
--- NOTE | 2019-03-17 17:48 | Diagnostic Imaging Report ---
History:Weakness Comparison studies: Head CTs on 07/28/15 and 04/26/2017. Technique: Axial images were obtained from the skull base to the vertex. Coronal and sagittal images reconstructed from the axial data. Dose modulation, iterative reconstruction, and/or weight based adjustment of the mA/kV was utilized to reduce the radiation dose to as low as reasonably achievable. Intravenous contrast: None Findings: Scalp/skull: No abnormalities. Extra-axial spaces: No masses. No fluid collections. Brain sulci: Mildly prominent. Ventricles: Mild compensatory dilatation. No hydrocephalus. Parenchyma: Subtle hypodensities in the supratentorial white matter are small vessel ischemic changes. No masses, hemorrhage, acute or chronic cortical vascular insults. Sellar/suprasellar region: No abnormalities. Craniocervical junction: Patent foramen magnum. No Chiari one malformation. Incidental findings: Atherosclerotic calcifications in the carotid siphons . 7 mm right frontal exostosis versus calcified meningioma at the vertex without mass effect. Impression: No acute abnormalities. No changes compared to the head CT on 04/26/2017 and 07/28/2015. Persistent findings: 1. Mild generalized volume loss. 2. Mild supratentorial white matter small vessel ischemic changes. Signed by: Dr. Erich Gary M.D. on 03/17/2019 5:45 PM
[2019-03-17] MEDS: CEFTRIAXONE SOD 1 GM/NS 50 ML 50 ML IV SCH (18:34)
[2019-03-17 18:35] VITALS: BP 179/72
[2019-03-17] MEDS ORDERED: HYDRALAZINE HCL 20 MG/ML VIAL IV PRN (18:45)
[2019-03-17] MEDS ORDERED: ACETAMINOPHEN 325 MG TAB PO PRN (18:45)
[2019-03-17 18:46] VITALS: BP 179/72
--- NOTE | 2019-03-17 19:49 | NUR ---
RECEIVED PT IN BED AOX3 RESPIRATIONS ARE EVEN AND UNLABORED .SEKOU PAIN .[id number] TO GIVE 2 UNIT OF BLOOD .CONSENT SIGNED .CALL LIGHT WITH IN REACH .CONTINUE TO MONITOR
[2019-03-17 20:13] VITALS: BP 151/66
[2019-03-17] MEDS ORDERED: SODIUM CHLORIDE 0.9% 250ML 250 ML ONE (21:45)
[2019-03-18 00:23] VITALS: BP 139/64
[2019-03-18] MEDS ORDERED: SODIUM CHLORIDE 0.9% 250ML 250 ML ONE (01:49)
[2019-03-18 04:20] VITALS: BP 148/69
--- NOTE | 2019-03-18 05:34 | NUR ---
2 UNIT S OF BLOOD GIVEN NO REACTION NOTED .CALL LIGHT WITH IN REACH .CONTINUE TO MONITOR
[2019-03-18] MEDS: CEFTRIAXONE SOD 1 GM/NS 50 ML 50 ML IV SCH (06:00)
[2019-03-18] MEDS ORDERED: LEVOTHYROXINE SODIUM 88 MCG TAB PO SCH (06:00)
--- NOTE | 2019-03-18 07:02 | NUR ---
BEDSIDE REPORT GIVEN TO THE ONCOMING NURSE
[2019-03-18 08:00] VITALS: BP 162/71
[2019-03-18 08:04] VITALS: BP 162/71
[2019-03-18 08:27] LABS: BASOPHILS # (AUTO) 0.1 (0.0-0.1); BASOPHILS % 0.5 % (0.0-1.0); EOSINOPHILS # (AUTO) 0.1 (0.0-0.4); EOSINOPHILS % 1.2 % (0.0-6.0); HEMATOCRIT 30.4 % (34.2-44.1); HEMOGLOBIN 9.2 g/dL (12.0-16.0); LYMPHOCYTES # (AUTO) 1.3 (1.0-3.2); LYMPHOCYTES % 13.9 % (18.0-39.1); MEAN CORPUSCULAR HEMOGLOBIN 25.6 pg (28-32); MEAN CORPUSCULAR HGB CONC 30.3 g/dL (31-35); MEAN CORPUSCULAR VOLUME 84.7 fL (81-99); MONOCYTES # (AUTO) 0.7 (0.2-0.8); MONOCYTES % 7.8 % (4.4-11.3); NEUTROPHILS # (AUTO) 7.2 (2.1-6.9); NEUTROPHILS % 76.1 % (38.7-80.0); PLATELET COUNT 362 x10e3/uL (140-360); RED BLOOD COUNT 3.59 x10e6/uL (3.6-5.1); RED CELL DISTRIBUTION WIDTH 17.1 % (11.7-14.4)
[2019-03-18] MEDS ORDERED: CYANOCOBALAMIN 1,000 MCG TAB PO SCH (09:00)
[2019-03-18] MEDS ORDERED: AMLODIPINE BESYLATE 5 MG TAB PO SCH (09:00)
[2019-03-18] MEDS ORDERED: NON-FORMULARY MEDICATION (Amlodipine Besylate 2.5 MG) PO SCH (09:00)
[2019-03-18 12:00] VITALS: BP 150/67
--- NOTE | 2019-03-18 15:02 | NUR ---
patient discharged home, IV canula removed with tip intact, no ss of infiltration. No prescription from physician, patient denies any pain or SOB, No distress noted, her daughter in law here to pick her, transported via wheelchair to [facility]
--- NOTE | 2019-03-18 17:49 | History and Physical ---
PRIMARY CARE PHYSICIAN: Dr. Dean Bowie. CHIEF COMPLAINT: Generalized weakness. 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 She reports had gone to her PCP, who prompted her to come to the ER for further evaluation. Upon arrival to the ER, her hemoglobin was 6.8. She was admitted under observation for blood transfusion. She denies any chest pain, shortness of breath, dizziness, nausea, vomiting, abdominal pain, dysuria, or hematuria. PAST MEDICAL HISTORY: 1. Hypertension. 2. Hypothyroidism. 3. Chronic anemia. 4. Inoperable stomach tumor. PAST SURGICAL HISTORY: None. FAMILY HISTORY: Father and mother with heart disease and sister of cancer. SOCIAL HISTORY: She denies any tobacco, alcohol, or illicit drug use. Lives with family. ALLERGIES: SHE HAS NO KNOWN DRUG ALLERGIES. REVIEW OF SYSTEMS: GENERAL: Fatigue and generalized weakness. HEENT: No head trauma or mouth sores. LUNGS: No shortness of breath or cough. CARDIOVASCULAR: No chest pain or palpitations. GI: No nausea, vomiting, or abdominal pain. NEUROLOGIC: No dizziness. SKIN: Dry and intact. PHYSICAL EXAMINATION: VITAL SIGNS: Temperature 97.9, pulse is 68, respirations 16, blood pressure 162/71, and pulse ox is 93% on room air. GENERAL: No acute distress. HEENT: Normocephalic and atraumatic. NECK: Supple and midline. LUNGS: Clear to auscultation. CARDIOVASCULAR: Regular rate and rhythm. GI: Soft and nontender. NEUROLOGIC: Alert, awake, and oriented x3. MUSCULOSKELETAL: Moves all extremities. No edema. SKIN: Dry and intact. PSYCHIATRIC: Calm. LABORATORY DATA: WBC 9.29, hemoglobin 6.8, hematocrit 23.3, and platelet 446. Sodium 139, CO2 of 19, creatinine 0.92, and estimated GFR 58. PT 14.4 and INR 1.07. Urine cloudy with slight blood, no nitrites, leukocyte esterase, few epithelial cells, many bacteria, and wbc's 6,000-10,000. IMAGING: Chest x-ray unremarkable. CT of the brain also unremarkable for acute process. IMPRESSION AND PLAN: 1. Symptomatic anemia. Hemoglobin 6.8. She was transfused with 2 units of blood. Hemoglobin is improved to 9.2. 2. Hypertension. We will resume home dose of amlodipine and clonidine as needed. 3. Inoperable stomach tumor, aware. Needs to follow up with Oncology. 4. Hypothyroidism. We will continue home levothyroxine. 5. Deep vein thrombosis prophylaxis. We will hold chemical anticoagulation due to her chronic anemia. Plan is to discharge the patient today, status post 2 units of PRBC transfusion. She is feeling much better, vital signs stable. We will discharge home to follow up with her PCP and tenant relations coordinator in 1 to 2 weeks. Dictated by JESSA Patten Fredi Cid MD MY/MODL /[id number] cc: Dean Bowie
== END 2019-03-18 14:42 | disposition home or self-care (01) ==
LOC: ER 15:52 → ERHOLD 17:31 → MED/SURG3 18:04
PROVIDERS: ADMIT Internal Medicine; ATTEND Internal Medicine
DX: D64.9 Anemia, unspecified (principal); I10 Essential (primary) hypertension; E03.9 Hypothyroidism, unspecified; C16.9 Malignant neoplasm of stomach, unspecified
CPT/HCPCS: 36415 ×2; 70450; 71045; 80053; 81001; 82550; 82553; 82948; 84484; 85025 ×2; 85610; 86850; 86900; 86920; 93005; 99284; G0378 ×2; J0696 ×2; J7050 ×2; P9016 ×2

== ENCOUNTER 2019-05-07 11:09 | Observation (INO) | payer MEDICARE ==
[~2019-05-07] VITALS: Ht 165.1 cm; Wt 64.0 kg
[~2019-05-07 11:09] MED LIST changes: +LEVOFLOXACIN500 MG PO; +ONDANSETRON HCL4 MG PO; +PROTONIX40 MG/ML PO; +SIMETHICONE80 MG PO
[2019-05-07 14:57] LABS: BASOPHILS % 0.3 % (0.0-1.0); EOSINOPHILS # (AUTO) 0.1 (0.0-0.4); EOSINOPHILS % 0.9 % (0.0-6.0); LYMPHOCYTES % 19.3 % (18.0-39.1); MEAN CORPUSCULAR HEMOGLOBIN 25.2 pg (28-32); MEAN CORPUSCULAR HGB CONC 29.6 g/dL (31-35); MEAN CORPUSCULAR VOLUME 85.1 fL (81-99); MONOCYTES # (AUTO) 0.8 (0.2-0.8); MONOCYTES % 7.7 % (4.4-11.3); NEUTROPHILS # (AUTO) 7.4 (2.1-6.9); PLATELET COUNT 274 x10e3/uL (140-360); RED BLOOD COUNT 2.62 x10e6/uL (3.6-5.1); RED CELL DISTRIBUTION WIDTH 18.6 % (11.7-14.4)
[2019-05-07 15:09] LABS: INR 1.08; PROTHROMBIN TIME 14.3 seconds (11.9-14.5)
[2019-05-07 15:10] LABS: PARTIAL THROMBOPLASTIN TIME 23.3 seconds (23.8-35.5)
[2019-05-07 15:15] LABS: HEMATOCRIT 22.3 % (34.2-44.1); HEMOGLOBIN 6.6 g/dL (12.0-16.0)
[2019-05-07] MEDS ORDERED: SODIUM CHLORIDE 0.9% 250ML 250 ML IV ONE (16:00)
[2019-05-07] MEDS ORDERED: PANTOPRAZOLE 40 MG 10ML VIAL IV NR (16:08)
[2019-05-07] MEDS ORDERED: ONDANSETRON HCL INJ 2MG/ML 2ML 2 MG/ML VIAL IV PRN (16:15)
[2019-05-07] MEDS ORDERED: SIMETHICONE 80 MG CHEW PO PRN (17:30)
[2019-05-07] MEDS ORDERED: ONDANSETRON HCL 4 MG ORAL DISINTEGRATING TAB PO PRN (17:45)
[2019-05-07] MEDS ORDERED: HYDRALAZINE HCL 20 MG/ML VIAL IV PRN (17:45)
[2019-05-07 18:29] VITALS: BP 154/54
[2019-05-07 18:36] VITALS: BP 154/54
--- NOTE | 2019-05-07 18:38 | NUR ---
patient received from ER via stretcher. see admit assess. vitals stable with no distress. lab called and blood ready to transfuse.
[2019-05-07 20:00] VITALS: BP 139/62
[2019-05-07] MEDS ORDERED: SODIUM CHLORIDE 0.9% 250ML 250 ML ONE (20:49)
[2019-05-07 21:04] VITALS: BP 139/62
[2019-05-07] MEDS: FUROSEMIDE INJ 10 MG/ML 2 ML VIAL IV PRN (23:44)
[2019-05-08] VITALS: BP 138/65
--- NOTE | 2019-05-08 00:07 | History and Physical ---
PRIMARY CARE PHYSICIAN: Dean Bowie CHIEF COMPLAINT: Generalized weakness and shortness of breath. HISTORY OF PRESENT ILLNESS: This is an 88-year-old female with past medical history of hypertension, hypothyroidism, inoperable stomach tumor with recurrent anemia, presented to the ER with complaints of shortness of breath and generalized weakness. She has had multiple admissions in the past for similar reasons associated with anemia. Hemoglobin at this time is 6.6, hematocrit 22.3, will be admitted for transfusion of 2 units of PRBCs. PAST MEDICAL HISTORY: 1. Hypertension. 2. Hypothyroidism. 3. Recurrent anemia due to inoperable stomach tumor. PAST SURGICAL HISTORY: None. FAMILY MEDICAL HISTORY: Mother and father had heart disease and sister of cancer. SOCIAL HISTORY: She lives with her family. She denies any alcohol, tobacco, or illicit drug use. ALLERGIES: NO KNOWN DRUG ALLERGIES. REVIEW OF SYSTEMS: GENERAL: Fatigue and generalized weakness. HEENT: No head trauma. LUNGS: Shortness of breath. No cough. CARDIOVASCULAR: No chest pain. GI: No nausea, but no vomiting. NEUROLOGIC: Alert and oriented. MUSCULOSKELETAL: Generalized weakness. No edema. PSYCH: Calm. PHYSICAL EXAMINATION: VITAL SIGNS: Temperature 97.6, pulse is 82, respirations 20, blood pressure 131/52, pulse ox 100% on room air. GENERAL: No acute distress. General fatigue. HEENT: Normocephalic, atraumatic. NECK: Supple. LUNGS: Clear to auscultation. CARDIOVASCULAR: Regular rate and rhythm. GI: Soft and nontender. NEUROLOGIC: Alert, awake, and oriented x3. MUSCULOSKELETAL: Moves all extremities. SKIN: Dry and intact. PSYCH: Calm. LABORATORY DATA: WBC 10.44, hemoglobin 6.6, hematocrit 22.3, platelets 274. Coagulation 14.3, INR 1.08, PTT 23.3. IMPRESSION: 1. Symptomatic anemia. Hemoglobin 6.6. We will transfuse 2 units of PRBCs and repeat labs in a.m. 2. Hypertension. Resume home medication, Norvasc and add hydralazine as needed. 3. Hypothyroidism. We will continue levothyroxine. 4. History of an inoperable stomach tumor. We will follow up with her oncologist, Dr. Leblanc outpatient. 5. Deep venous thrombosis prophylaxis. SCDs due to anemia. PLAN: To transfuse 2 units of PRBCs, repeat labs in a.m., and anticipate discharge home to follow up with her PCP tomorrow. Dictated by Bridgett Sims, ANP MD ERNST Shanks/SHANTANUL /[id number]
[2019-05-08] MEDS ORDERED: SODIUM CHLORIDE 0.9% 250ML 250 ML ONE (00:58)
[2019-05-08 04:00] VITALS: BP 147/62
[2019-05-08] MEDS: FUROSEMIDE INJ 10 MG/ML 2 ML VIAL IV PRN (04:22)
[2019-05-08] MEDS ORDERED: LEVOTHYROXINE SODIUM 88 MCG TAB PO SCH (06:00)
[2019-05-08 06:35] LABS: BASOPHILS # (AUTO) 0.1 (0.0-0.1); BASOPHILS % 0.7 % (0.0-1.0); EOSINOPHILS # (AUTO) 0.1 (0.0-0.4); EOSINOPHILS % 1.3 % (0.0-6.0); HEMATOCRIT 26.8 % (34.2-44.1); HEMOGLOBIN 8.8 g/dL (12.0-16.0); LYMPHOCYTES # (AUTO) 1.3 (1.0-3.2); LYMPHOCYTES % 15.5 % (18.0-39.1); MEAN CORPUSCULAR HEMOGLOBIN 27.5 pg (28-32); MEAN CORPUSCULAR HGB CONC 32.8 g/dL (31-35); MEAN CORPUSCULAR VOLUME 83.8 fL (81-99); MONOCYTES # (AUTO) 0.8 (0.2-0.8); MONOCYTES % 9.2 % (4.4-11.3); NEUTROPHILS % 72.8 % (38.7-80.0); PLATELET COUNT 298 x10e3/uL (140-360); RED CELL DISTRIBUTION WIDTH 16.2 % (11.7-14.4)
[2019-05-08 06:53] LABS: ANION GAP 11.8 mmol/L (8-16); BLOOD UREA NITROGEN 27 mg/dL (7-26); BUN/CREATININE RATIO 38 (6-25); CALCIUM 8.1 mg/dL (8.4-10.2); CARBON DIOXIDE 22 mmol/L (22-29); CHLORIDE 113 mmol/L (98-107); CREATININE, SERUM 0.71 mg/dL (0.57-1.11); EST GLOMERULAR FILTRATION RATE > 60 ML/MIN (60-); GLUCOSE 100 mg/dL (74-118); POTASSIUM 3.8 mmol/L (3.5-5.1); SODIUM 143 mmol/L (136-145)
[2019-05-08] MEDS ORDERED: PANTOPRAZOLE 20 MG PO SCH (07:30)
[2019-05-08 08:00] VITALS: BP 129/62
[2019-05-08 08:44] VITALS: BP 129/62
[2019-05-08] MEDS ORDERED: NON-FORMULARY MEDICATION (Amlodipine Besylate 2.5 MG) PO SCH (09:00)
[2019-05-08] MEDS ORDERED: PANTOPRAZOLE 40 MG 10ML VIAL IV SCH (09:00)
[2019-05-08] MEDS ORDERED: CYANOCOBALAMIN 1,000 MCG TAB PO SCH (09:00)
[2019-05-08] MEDS ORDERED: AMLODIPINE BESYLATE 5 MG TAB PO SCH (09:00)
--- NOTE | 2019-05-08 10:27 | NUR ---
OBS STATUS FOR ANEMIA TRANSFUSED 2 UPRBC'S ANTICIPATE DC HOME TODAY AFTER ATTENDING ROUNDS
[2019-05-08 12:00] VITALS: BP 112/54
--- NOTE | 2019-05-08 15:12 | NUR ---
patient discharged home, AAOx3, Not in any distress, IV canula removed with tip intact, no ss of infiltration, denies any pain, discharge instruction given, transported via wheelchair to [facility]
--- NOTE | 2019-05-08 16:04 | Discharge Summary ---
PRIMARY CARE PHYSICIAN: Dr. Dean Bowie. FINAL DISCHARGE DIAGNOSES: 1. Symptomatic anemia status post 2 units of PRBC transfusion. 2. Hypertension. 3. Hypothyroidism. 4. History of inoperable stomach tumor. CONSULTANTS: None. PROCEDURES: None. Transfuse 2 units of PRBCs. HISTORY: Per HPI. HOSPITAL COURSE: This is an 88-year-old female with past medical history of hypertension, hypothyroidism, inoperable stomach tumor, here for recurrent anemia. Upon arrival, her hemoglobin was 6.6. Transfused 2 units of PRBCs. Today, hemoglobin is 8.9. Asymptomatic, no shortness of breath, chest pain, or dysuria. We will discharge home to follow up with Dr. Leblanc, her manager clinical services and PCP Dr. Bowie for further workup. PHYSICAL EXAMINATION: VITAL SIGNS: Temperature 98.0, pulse of 72, respirations 20, blood pressure 112/54, pulse ox is 98% on room air. GENERAL: No acute distress. HEENT: Normocephalic, atraumatic. NECK: Supple. LUNGS: Clear to auscultation. CARDIOVASCULAR: Regular rate and rhythm. GI: Soft and nontender. NEUROLOGIC: Alert, awake, and oriented x3. MUSCULOSKELETAL: Moves all extremities. SKIN: Dry. CONDITION AT DISCHARGE: Improved and stable. DISCHARGE MEDICATIONS: Please see medication reconciliation list. FOLLOWUP: Follow up with Dr. Bowie and Dr. Leblanc, Hematology in 1 to 2 weeks. TIME SPENT: Total time of discharge is 32 minutes. Dictated by JESSA Patten Fredi Cid MD MY/MODL /[id number] cc: Dean Bowie
== END 2019-05-08 15:01 | disposition home or self-care (01) ==
LOC: ER 11:09 → ERHOLD 16:05 → MED/SURG3 18:11
PROVIDERS: ADMIT Internal Medicine; ATTEND Internal Medicine
DX: C16.9 Malignant neoplasm of stomach, unspecified (principal); D63.0 Anemia in neoplastic disease; I10 Essential (primary) hypertension; E03.9 Hypothyroidism, unspecified; K21.9 Gastro-esophageal reflux disease without esophagitis; Z82.49 Family history of ischemic heart disease and other diseases of the circulatory system; Z80.9 Family history of malignant neoplasm, unspecified
CPT/HCPCS: 36415 ×2; 36430; 80048; 85025 ×2; 85610; 85730; 86850; 86900; 86920; 99284; C9113 ×2; G0378 ×2; J1940 ×2; J7050 ×2; P9016 ×2

== ENCOUNTER 2019-06-05 15:46 | Emergency (ER) | payer MEDICARE ==
[~2019-06-05] VITALS: Ht 157.5 cm; Wt 65.8 kg
[2019-06-05] MEDS ORDERED: CYCLOBENZAPRINE HCL 10 MG TAB PO NR (16:45)
[2019-06-05] MEDS ORDERED: DEXAMETHASONE SOD PHOS 10 MG/1 ML VIAL IM NR (16:45)
[2019-06-05 17:31] VITALS: BP 141/82
[2019-06-06] MEDS ORDERED: NABUMETONE500 MG PO (20:36)
[2019-06-06] MEDS ORDERED: LEVOTHYROXINE100 MCG PO (20:36)
[2019-06-06] MEDS ORDERED: TIZANIDINE HCL4 MG PO (20:36)
== END 2019-06-05 17:40 | disposition home or self-care (01) ==
LOC: ER 15:46
DX: M54.41 Lumbago with sciatica, right side (principal); I10 Essential (primary) hypertension
CPT/HCPCS: 99282; J1100

== ENCOUNTER 2019-06-06 18:01 | Inpatient (IN) | payer MEDICARE ==
[~2019-06-06] VITALS: Ht 157.5 cm; Wt 66.7 kg
[2019-06-06] MEDS ORDERED: SODIUM CHLORIDE 0.9% 1000ML 1,000 ML IV STA (18:04)
[2019-06-06] MEDS ORDERED: MORPHINE SULFATE INJ 4 MG/ML INJ 1ML IV PRN (18:15)
[2019-06-06] MEDS ORDERED: SODIUM CHLORIDE 0.9% 1000ML 1,000 ML IV SCH (18:17)
[2019-06-06] MEDS ORDERED: ONDANSETRON HCL INJ 2MG/ML 2ML 2 MG/ML VIAL IV PRN ×2 (18:30→21:00)
[2019-06-06 18:32] LABS: BASOPHILS % 0.1 % (0.0-1.0); HEMATOCRIT 28.1 % (34.2-44.1); HEMOGLOBIN 8.7 g/dL (12.0-16.0); LYMPHOCYTES % 7.2 % (18.0-39.1); MEAN CORPUSCULAR HEMOGLOBIN 27.2 pg (28-32); MEAN CORPUSCULAR VOLUME 87.8 fL (81-99); MONOCYTES % 7.2 % (4.4-11.3); NEUTROPHILS % 84.5 % (38.7-80.0); PLATELET COUNT 483 x10e3/uL (140-360); RED CELL DISTRIBUTION WIDTH 16.9 % (11.7-14.4)
--- NOTE | 2019-06-06 18:49 | Diagnostic Imaging Report ---
Exam: Right hip 2 views History: Pain Comparison: None. Findings: Transverse fracture of the femoral neck with displacement and angulation. Mild degenerative changes of the hips. Impression: Transverse fracture of the right femoral neck with displacement and angulation Signed by: Dr. Martin Sanchez M.D. on 06/06/2019 6:46 PM
[2019-06-06 18:50] LABS: ALBUMIN 2.7 g/dL (3.5-5.0); ALBUMIN/GLOBULIN RATIO 0.8 (0.8-2.0); ANION GAP 12.1 mmol/L (8-16); CALCIUM 8.3 mg/dL (8.4-10.2); CREATININE, SERUM 1.16 mg/dL (0.57-1.11); POTASSIUM 4.1 mmol/L (3.5-5.1)
[2019-06-06] MEDS: MORPHINE SULFATE INJ 4 MG/ML INJ 1ML IV PRN (19:12)
[2019-06-06 20:05] VITALS: BP 172/70
--- NOTE | 2019-06-06 20:13 | NUR ---
Patients son stated, upon arrival to her room on Med 1, that she said she thinks she fell out of bed lastnight. I asked the patient myself when I heard that and she confirmed what the son told me.
[2019-06-06 20:31] VITALS: BP 140/62
[2019-06-06] MEDS ORDERED: LEVOTHYROXINE100 MCG PO (20:36)
[2019-06-06] MEDS ORDERED: TIZANIDINE HCL4 MG PO (20:36)
[2019-06-06] MEDS ORDERED: NABUMETONE500 MG PO (20:36)
--- NOTE | 2019-06-06 20:44 | NUR ---
History [id number] Jose Roberto weinstein
[2019-06-06] MEDS ORDERED: ACETAMINOPHEN 325 MG TAB PO PRN (20:45)
[2019-06-06] MEDS ORDERED: SIMETHICONE 80 MG CHEW PO PRN (20:45)
[2019-06-06] MEDS: DEXTROSE 5% 1,000 ML IV SCH (22:00)
[2019-06-06 22:20] VITALS: BP 140/62
[2019-06-07] VITALS (8 sets, daily range): BP systolic 95–128; BP diastolic 46–63
--- NOTE | 2019-06-07 00:42 | History and Physical ---
PRIMARY CARE DOCTOR: Dr. Dean Bowie. ONCOLOGIST: Dr. Leblanc. REASON FOR REFERRAL: Severe right hip pain. HISTORY OF PRESENT ILLNESS: Ms. Johnson is a pleasant 89-year-old female with right hip pain. The patient with recent diagnosis of stomach tumor. She had concomitant anemia led to workup. The patient was found to have an inoperable malignancy. The patient was recommended for semi-palliative care. As her condition is not amenable to surgical therapy nor chemotherapy, there were considerations to institute more palliation in the future. However, the patient recently has been having worse hip pain. The patient with ER presentation just one day previous with right hip pain, which seemed consistent with sciatica or other nerve impingement and she was allowed for outpatient followup. However, she presents today, which is the following day with worsening of the pain. Due to this, she undergoes right hip x-ray, which demonstrates transverse fracture of right femoral neck with displacement and angulation. She is admitted. PAST MEDICAL HISTORY: Hypertension, hypothyroidism, severe protein calorie malnutrition. MEDICATIONS: Medication list reviewed per the chart record. ALLERGIES: NO KNOWN DRUG ALLERGIES. SOCIAL HISTORY: No smoking, no drinking, no drugs. She lives with her family. FAMILY HISTORY: Noncontributory. REVIEW OF SYSTEMS: Generally, the patient not able to provide as she is in a lot of pain and received medications. OBJECTIVE: VITAL SIGNS: Afebrile, vital signs noted reviewed per the chart record. GENERAL: In no acute distress, but there seems to be a lot of pain and she is weathering around the bed with limitation in her communication. She can stop to stay a few phrases, but she has no obvious pain. HEENT: Normocephalic, atraumatic. NECK: Supple. Throat midline. LUNGS: Bilateral air entry, mostly clear. CARDIOVASCULAR: S1, S2. No murmurs, rubs, or gallops. ABDOMINAL: Soft, nontender. EXTREMITIES: No clubbing, no cyanosis. There is leg edema bilaterally. 2+. INTEGUMENT: No rash or purpura. LABORATORY DATA: Fourteen white count, 28 hematocrit, 483 platelets. Chemistry with 20 bicarbonate, 45 BUN, 1.2 creatinine. Albumin is 2.7 now. IMPRESSION AND PLAN: 1. Acute right transverse hip fracture, likely pathologic. 2. Inoperable stomach cancer. 3. Hypertension. 4. Hypothyroidism. 5. Weakness/debility. 6. Anemia, recurrent/persistent. 7. Function dysphagia, gastroesophageal reflux disease. 8. Thyroid abnormality. Intra bowel movements. Orthopedics consult. Consideration for radiation in future if thought amenable. The patient should also be considered for hospice. Check ultrasound legs to the leg edema. Enhance nutrition as feasible. Thank you very much, Dr. Bowie. Please call for questions. MD VERONICA Jin/MODL /[id number]
[2019-06-07] MEDS: LEVOTHYROXINE SODIUM 100 MCG TAB PO SCH (05:09)
[2019-06-07] MEDS: MORPHINE SULFATE INJ 4 MG/ML INJ 1ML IV PRN ×2 (05:09→15:57)
--- NOTE | 2019-06-07 07:00 | NUR ---
RECEIVED PATIENT AWAKE IN BED NO S/S OF DISTRESS. BED LOW, WHEELS LOCKED, SIDE RAILS X2. CALL LIGHT IN REACH WILL CONTINUE TO MONITOR PATIENT.
[2019-06-07] MEDS: PANTOPRAZOLE SOD 40 MG TABEC PO SCH (08:23)
[2019-06-07] MEDS: TIZANIDINE HCL 4 MG TAB PO SCH ×2 (08:26→16:23)
[2019-06-07] MEDS: AMLODIPINE BESYLATE 5 MG TAB PO SCH (08:26)
[2019-06-07] MEDS: CYANOCOBALAMIN 1,000 MCG TAB PO SCH (08:26)
[2019-06-07] MEDS ORDERED: ONDANSETRON HCL 4 MG ORAL DISINTEGRATING TAB PO PRN (09:45)
--- NOTE | 2019-06-07 11:48 | NUR ---
MEDICINE ATTENDING Seen with EGG PRODUCER Dr Oleary, see note. Await orthopedics input. Pain better controlled. Recheck CBC
[2019-06-07 12:03] LABS: BASOPHILS % 0.2 % (0.0-1.0); EOSINOPHILS % 0.3 % (0.0-6.0); HEMOGLOBIN 7.3 g/dL (12.0-16.0); LYMPHOCYTES # (AUTO) 1.2 (1.0-3.2); LYMPHOCYTES % 11.1 % (18.0-39.1); MEAN CORPUSCULAR HEMOGLOBIN 27.7 pg (28-32); MEAN CORPUSCULAR HGB CONC 30.4 g/dL (31-35); MEAN CORPUSCULAR VOLUME 90.9 fL (81-99); MONOCYTES # (AUTO) 0.8 (0.2-0.8); MONOCYTES % 7.7 % (4.4-11.3); NEUTROPHILS # (AUTO) 8.4 (2.1-6.9); NEUTROPHILS % 80.2 % (38.7-80.0); PLATELET COUNT 394 x10e3/uL (140-360); RED BLOOD COUNT 2.64 x10e6/uL (3.6-5.1); RED CELL DISTRIBUTION WIDTH 17.2 % (11.7-14.4)
[2019-06-07] MEDS: DEXTROSE 5% 1,000 ML IV SCH (16:23)
--- NOTE | 2019-06-07 21:00 | NUR ---
Assessment done.aaox3.no resp.distress.iv fluid running.phone and call light within reach.instructed to call for assistance as needed.pure wick in place.draining well.
[2019-06-08] VITALS (8 sets, daily range): BP systolic 107–124; BP diastolic 42–59
--- NOTE | 2019-06-08 03:52 | NUR ---
New iv started to left wrist.patent.patient tolerated well.
[2019-06-08] MEDS: MORPHINE SULFATE INJ 4 MG/ML INJ 1ML IV PRN ×3 (04:46→16:05)
[2019-06-08] MEDS: LEVOTHYROXINE SODIUM 100 MCG TAB PO SCH (05:17)
--- NOTE | 2019-06-08 06:54 | NUR ---
Bed side shift report given to oncoming Rn.stable condition.
--- NOTE | 2019-06-08 07:00 | NUR ---
RECEIVED PATIENT RESTING IN BED NO S/S OF DISTRESS. BED LOW, WHEELS LOCKED, SIDE RAILS X2. CALL LIGHT IN REACH WILL CONTINUE TO MONITOR PATIENT.
[2019-06-08] MEDS: TIZANIDINE HCL 4 MG TAB PO SCH ×2 (07:58→16:05)
[2019-06-08] MEDS: PANTOPRAZOLE SOD 40 MG TABEC PO SCH ×2 (07:58→16:30)
[2019-06-08] MEDS: CYANOCOBALAMIN 1,000 MCG TAB PO SCH (07:58)
[2019-06-08] MEDS: AMLODIPINE BESYLATE 5 MG TAB PO SCH (07:58)
--- NOTE | 2019-06-08 13:45 | NUR ---
Visit made by the Spiritual Care Department Pastoral Visitor, Hortensia Savage. PV provided pastoral presence, hospitality, prayer, and supportive listening. Pastoral Visitor informed pt/family of the scope of [employer] Services and availability. COLLEEN RENTERIA Triage Register Nurse Spiritual Care Department O: [phone]
[2019-06-08] MEDS: DEXTROSE 5% 1,000 ML IV SCH (16:05)
[2019-06-08] MEDS ORDERED: FAMOTIDINE 20 MG TAB PO SCH (16:30)
--- NOTE | 2019-06-08 19:20 | NUR ---
Received bedside report from day nurse. Patient resting in bed, no s/s of distress or c/o pain at this time. All safety measures in place. Will continue to monitor.
--- NOTE | 2019-06-08 19:33 | Progress Note ---
DATE: 06/08/[address] ADMINISTRATOR: Dr. Alba with Orthopedics. CHIEF COMPLAINT: Right hip pain due to fracture. SUBJECTIVE: The patient is resting in bed with no acute distress. Right lower extremity elevated on pillow. Reports severe pain to the right lower hip area. She denies any chest pain, shortness of breath, nausea, or vomiting. PHYSICAL EXAMINATION: VITAL SIGNS: Temperature 98.0, pulse is 62, respirations 18, blood pressure 124/56, and pulse ox is 94% on room air. GENERAL: In no acute distress. HEENT: Normocephalic and atraumatic. NECK: Supple. CARDIOVASCULAR: Regular rate and rhythm. LUNGS: Clear to auscultation. ABDOMEN: Soft and nontender. NEUROLOGIC: Alert, awake, and oriented x3. MUSCULOSKELETAL: Right lower extremity severe pain. No edema. Palpable pulses. SKIN: Dry. LABORATORY DATA: WBC 10.4, hemoglobin 7.3, hematocrit 24.0, and platelet 394. Sodium 140, potassium 4.0, BUN 45, and creatinine 1.16. TSH 5.910. Right lower extremity venous Doppler shows no evidence of DVT in the right lower extremities. IMPRESSION: 1. Right acute transverse hip fracture. Status post mechanical fall. Orthopedics consulted, but the patient and family agree with nonsurgical intervention. Case management consulted for half-way facility placement. 2. Hypertension. Continue amlodipine. 3. History of inoperable stomach cancer. Follow up outpatient with Dr. Leblanc. 4. Hypothyroidism. We will continue levothyroxine. 5. Acute kidney injury. Creatinine 1.16. Encourage to increase p.o. intake. 6. Recurrent anemia. Hemoglobin is 7.3. We will monitor and transfuse as needed. 7. Acid reflux. Increase Protonix to 40 b.i.d. 8. Deep vein thrombosis prophylaxis. No chemical anticoagulation due to anemia. PLAN: Case management has been consulted for half-way facility placement. Dictated by JESSA Patten Fredi Cid MD MY/MODL /[id number]
--- NOTE | 2019-06-08 19:53 | Consultation ---
DATE OF CONSULTATION: 06/07/2019 CHIEF COMPLAINT: Right hip pain. HISTORY OF PRESENT ILLNESS: This patient is a pleasant 89-year-old female, who has a significant history of an inoperable stomach tumor. The patient states she has been developing some right hip pain for the past few days. She states that she stepped. She got out of bed and when she was turning on the right leg, she felt a painful pop. She states the pain got progressively worse and she was unable to bear weight on the right leg. She was brought into the [facility] ER and had x-rays of the right hip. This demonstrated a right femoral neck fracture and thus Orthopedics was consulted. I spoke with both the patient and the family. Their oncologist is Dr. Leblanc. She was diagnosed with this stomach tumor roughly one year ago. She has decided to treat this with palliative care and has refused any form of treatment for the cancer including testing. She was told she had perhaps one year left back in July of last year. Prior to the hip pain, she ambulated independently. PAST MEDICAL HISTORY: See H and P. SOCIAL HISTORY: The patient denies smoking, drinking, or illicit drugs. She lives with her family. ALLERGIES: NO KNOWN DRUG ALLERGIES. REVIEW OF SYSTEMS: All negative other than the right hip pain. PHYSICAL EXAMINATION: GENERAL: This is a pleasant elderly female, who appears slightly malnourished. She is in no apparent distress. She is awake, alert, and oriented. She answers questions appropriately. EXTREMITIES: Gross inspection of her right hip shows no swelling or erythema. The right lower extremity is slightly externally rotated. Any attempts of passive range of motion elicit pain. The right leg is slightly shortened. The distal neurovascular exam is normal. IMAGING: X-rays of the right hip and pelvis were obtained and show an angulated femoral neck fracture. I did not note any bony metastases on the plain films. ASSESSMENT AND PLAN: This is an 89-year-old female with a right hip fracture. The findings and options were discussed with the patient and her family. The option of surgery would involve a right hip hemiarthroplasty. The risks and benefits of the surgery were explained the increased risks given her frail health and malignancy were explained. She also has anemia of chronic disease. Her last hemoglobin was 7.3. She would require a transfusion prior to any surgical procedure. The limited benefits of the surgery given her terminal malignancy were also discussed with the family and alternative treatments were discussed. Nonsurgical management would include comfort care. This would mean nonweightbearing on the right leg and wheelchair transfers only. I explained that she would need to except being confined to a wheelchair. The consideration of hospice care was also discussed with the patient and the family are both leaning towards nonsurgical management and all other questions were answered. I provided my contact information. If they changed her mind, they will contact me to discuss the options further. Thank you for the consultation. Dictated by Jarred Marshall PA-C MD AALIYAH Cline/MAYANK /[id number]
[2019-06-08] MEDS ORDERED: LIDOCAINE 4% PATCH TP SCH (20:00)
[2019-06-09] VITALS (8 sets, daily range): BP systolic 96–168; BP diastolic 44–72
[2019-06-09] MEDS: MORPHINE SULFATE INJ 4 MG/ML INJ 1ML IV PRN ×4 (01:12→19:48)
[2019-06-09 05:39] LABS: BASOPHILS % 0.3 % (0.0-1.0); EOSINOPHILS # (AUTO) 0.1 (0.0-0.4); EOSINOPHILS % 1.2 % (0.0-6.0); HEMATOCRIT 23.9 % (34.2-44.1); HEMOGLOBIN 7.3 g/dL (12.0-16.0); LYMPHOCYTES # (AUTO) 1.1 (1.0-3.2); LYMPHOCYTES % 12.8 % (18.0-39.1); MEAN CORPUSCULAR HEMOGLOBIN 26.9 pg (28-32); MEAN CORPUSCULAR HGB CONC 30.5 g/dL (31-35); MEAN CORPUSCULAR VOLUME 88.2 fL (81-99); MONOCYTES % 11.6 % (4.4-11.3); NEUTROPHILS # (AUTO) 6.3 (2.1-6.9); NEUTROPHILS % 73.6 % (38.7-80.0); PLATELET COUNT 309 x10e3/uL (140-360); RED BLOOD COUNT 2.71 x10e6/uL (3.6-5.1); RED CELL DISTRIBUTION WIDTH 17.1 % (11.7-14.4)
[2019-06-09] MEDS: LEVOTHYROXINE SODIUM 100 MCG TAB PO SCH (05:54)
--- NOTE | 2019-06-09 07:00 | NUR ---
Bedside report given to day nurse. Patient resting in bed, no s/s of distress at this time. All safety measures in place.
[2019-06-09] MEDS: DEXTROSE 5% 1,000 ML IV SCH (08:45)
[2019-06-09] MEDS: PANTOPRAZOLE SOD 40 MG TABEC PO SCH ×2 (08:50→16:57)
[2019-06-09] MEDS: AMLODIPINE BESYLATE 5 MG TAB PO SCH (09:27)
[2019-06-09] MEDS: CYANOCOBALAMIN 1,000 MCG TAB PO SCH (09:28)
[2019-06-09] MEDS: TIZANIDINE HCL 4 MG TAB PO SCH ×2 (09:28→16:57)
[2019-06-09] MEDS: LIDOCAINE 4% PATCH TP SCH (09:29)
--- NOTE | 2019-06-09 10:05 | NUR ---
ORDERS REC'D FOR ACUTE REHAB VS SNF CM SPOKE WITH PT AND DTR IN ROOM; DTR ASHLEY HAYNES THIS PT HAS TERMINAL GASTRIC CANCER AND NOW A BROKEN HIP DISCUSSED HOSPICE WITH PT AND DTR AND THEY REPLIED, "THAT'S OUT OF THE QUESTION" GOAL PER ORTHO FOR PT IS TO BE ABLE TO DO WHEELCHAIR TRANSFERS AND MINIMAL WALKING WITH NWB TO FX HIP "COMFORT CARE" PER ORTHO PT AND DTR PREFER SNF IN [facility] TO FOLLOW CAN DC 3/5 AFTER 3 MIDNIGHTS
--- NOTE | 2019-06-09 11:41 | NUR ---
CALLED SON (POVipin) JOSÉ [phone] TO DISCUSS SNF ORDER, LEFT VOICE MAIL TO RETURN CALL.
--- NOTE | 2019-06-09 12:36 | NUR ---
SON HERE AT FACILITY SIGNED CHOICE FOR FOCUSED CARE JORDI, WILL FAX CLINICALS AND PASRR TO BUILDING AND EDUCATE ON IMM FILED IN CHART AND PROVIDE COPY FOR RECORDS.
[2019-06-09] MEDS: HYDROCODONE/APAP 5MG-325MG TAB PO PRN ×2 (14:54→22:48)
[2019-06-09] MEDS: SUCRALFATE 1 GM TAB PO SCH ×2 (16:57→21:54)
--- NOTE | 2019-06-09 17:48 | Progress Note ---
DATE: 06/09/2019 CONSULTING PHYSICIAN: Dr. Alba with Orthopedics. CHIEF COMPLAINT: Right hip pain status post fall with fractures. SUBJECTIVE: The patient is seen getting back in bed with physical therapy. She was noted to be in severe pain with activity. Denies any chest pain, shortness of breath, nausea, or vomiting. She reports acid reflux. We will add sucralfate. PHYSICAL EXAMINATION: VITAL SIGNS: Temperature 99.0, pulse is 69, respirations 17, blood pressure 114/52, pulse ox is 96% on room air. GENERAL: Fatigue and generalized weakness. HEENT: Normocephalic, atraumatic. NECK: Supple. CARDIOVASCULAR: Regular rate and rhythm. LUNGS: Clear to auscultation. ABDOMEN: Soft and nontender. NEUROLOGIC: Alert, awake, and oriented x3. MUSCULOSKELETAL: Right lower extremity severe pain. Palpable pulses. SKIN: Dry. PSYCH: Calm. LABORATORY DATA: WBC 8.6, hemoglobin 7.3, hematocrit 23.9, platelet 309. IMPRESSION: 1. Right acute transverse hip fracture, status post mechanical fall. Orthopedics on the case, nonsurgical intervention discussed and agreed upon. Continue pain management, physical therapy and [facility] facility placement pending. 2. Hypertension. Continue amlodipine. 3. History of inoperable stomach cancer. Follow up with Dr. Leblanc, outpatient. 4. Hypothyroidism. We will continue on levothyroxine. 5. Acute kidney injury. Creatinine is improving, encourage p.o. intake. Per family has poor p.o. intake. We will add Ensure. 6. Recurrent anemia. Hemoglobin is stable at 7.3. We will monitor hemoglobin and hematocrit in a.m. and transfuse as needed. 7. History of acid reflux. Protonix b.i.d. and we will add sucralfate before meals and at bedtime. 8. Severe pain. We will add hydrocodone for pain control. 9. Deep vein thrombosis prophylaxis. No chemical anticoagulation due to anemia. PLAN: Send to [facility] facility tomorrow. Dictated by JESSA Patten Krissching Martin Cid MD MY/MODL /[id number]
--- NOTE | 2019-06-09 19:21 | NUR ---
Received bedside report from day nurse. Patient resting in bed, no s/s of distress at this time. All safety measures in place. Will continue to monitor.
--- NOTE | 2019-06-09 19:50 | NUR ---
Patient BP 165/69, crying and c/o severe pain 10/10 to right hip and leg. Administered PRN morphine. Will continue to monitor.
[2019-06-10] VITALS (7 sets, daily range): BP systolic 136–155; BP diastolic 57–65
[2019-06-10] MEDS: MORPHINE SULFATE INJ 4 MG/ML INJ 1ML IV PRN ×3 (03:12→14:59)
[2019-06-10] MEDS: LEVOTHYROXINE SODIUM 100 MCG TAB PO SCH (05:42)
[2019-06-10] MEDS: HYDROCODONE/APAP 5MG-325MG TAB PO PRN ×2 (05:42→16:38)
--- NOTE | 2019-06-10 05:44 | NUR ---
Patient BP 164/72, elevated after being turned and changed. Patient crying and c/o severe right hip pain 01/14. Administered PRN Antelope. Will continue to monitor.
[2019-06-10 06:03] LABS: HEMATOCRIT 25.3 % (34.2-44.1); HEMOGLOBIN 7.5 g/dL (12.0-16.0)
--- NOTE | 2019-06-10 06:58 | NUR ---
Bedside report given to day nurse. Patient resting in bed, c/o severe right hip pain after being repositioned in bed. Administered PRN morphine. All safety measures in place.
[2019-06-10] MEDS: PANTOPRAZOLE SOD 40 MG TABEC PO SCH (08:21)
[2019-06-10] MEDS: SUCRALFATE 1 GM TAB PO SCH ×2 (08:21→12:17)
[2019-06-10] MEDS: AMLODIPINE BESYLATE 5 MG TAB PO SCH (08:22)
[2019-06-10] MEDS: CYANOCOBALAMIN 1,000 MCG TAB PO SCH (08:23)
[2019-06-10] MEDS: TIZANIDINE HCL 4 MG TAB PO SCH (08:23)
[2019-06-10] MEDS: LIDOCAINE 4% PATCH TP SCH (08:23)
[2019-06-10] MEDS: DEXTROSE 5% 1,000 ML IV SCH (08:36)
--- NOTE | 2019-06-10 11:58 | NUR ---
INTERMEDIATE FACILITY DISCHARGE INFORMATION PATIENT HAS BEEN ACCEPTED TO: NAME: [facility] ADDRESS: [address] [place] [address] ACCEPTING MANUSCRIPTS ARCHIVIST: MATTHEW CASTELLANOS MD: MANUEL ROOM: 309A NURSE CALL REPORT TO: [phone] IMM SIGNED AND OBTAINED (if applicable): IMM THE FOLLOWING DOCUMENTS MUST ACCOMPANY PATIENT FOR TRANSFER: COPIED CHART: PACKET
[2019-06-10] MEDS ORDERED: Hydrocodone/Apap 5MG-325MG PO (13:20)
--- NOTE | 2019-06-11 13:33 | Discharge Summary ---
PRIMARY CARE PHYSICIAN: Dean Bowie. FINAL DISCHARGE DIAGNOSES: 1. Right acute transverse hip fracture, status post mechanical fall. 2. Hypertension. 3. History of inoperable stomach cancer. 4. Hypothyroidism. 5. Acute kidney injury. 6. Recurrent anemia due to stomach cancer. 7. History of acid reflux. CONSULTANTS: Dr. Alba with Orthopedics. PROCEDURES: None. HISTORY: Per HPI. HOSPITAL COURSE: This is an 89-year-old female with past medical history of hypertension, hypothyroidism, inoperable stomach cancer, anemia requiring recurrent blood transfusions, GERD, presented to the ER with complaints of right hip/pelvic pain, status post mechanical fall. Imaging noted, orthopedics consulted, discussed with the patient and family regarding treatment plan and opted for nonsurgical intervention with pain management and physical therapy. She remains stable, will discharge to [facility] living facility for further therapy and management. PHYSICAL EXAMINATION: VITAL SIGNS: Temperature 97.4, pulse is 62, respirations 16, blood pressure 140/57, pulse ox is 96% on room air. GENERAL: No acute distress, fatigue. HEENT: Normocephalic and atraumatic. NECK: Supple. CARDIOVASCULAR: Regular rate and rhythm. LUNGS: Clear to auscultation. ABDOMEN: Soft and nontender. NEUROLOGIC: Alert, awake, and oriented x3. MUSCULOSKELETAL: Decreased ROM of the right lower extremity. Palpable pulses. CONDITION AT DISCHARGE: Stable. DISCHARGE MEDICATIONS: Please see medication reconciliation list. FOLLOWUP: Follow up with PCP and Dr. Leblanc oncologist in 1 week. TIME SPENT: Total time of discharge is 32 minutes. Dictated by JESSA Patten Fredi Cid MD MY/MODL /[id number] cc: Dean Bowie
== END 2019-06-10 16:56 | DRG 543 ==
LOC: ER 18:01 → ERHOLD 18:17 → MED/SURG 20:25 → OBSVTOIN 06-07 14:53
PROVIDERS: ADMIT Internal Medicine; ATTEND Internal Medicine
DX: M84.451A Pathological fracture, right femur, initial encounter for fracture (principal); C16.9 Malignant neoplasm of stomach, unspecified; N17.9 Acute kidney failure, unspecified; I10 Essential (primary) hypertension; E03.9 Hypothyroidism, unspecified; R53.81 Other malaise; D64.9 Anemia, unspecified; F45.8 Other somatoform disorders; K21.9 Gastro-esophageal reflux disease without esophagitis; D63.0 Anemia in neoplastic disease
CPT/HCPCS: 36415; 80053; 84443; 85014; 85018; 85025; 86850; 86900; 93970; 97139; 99284; G0378; J2270; J2405; J7030; J7070; Q0162